=== PATIENT | female | born 2000 | race Caucasian/White ===

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

== ENCOUNTER 2022-06-06 18:52 | Emergency (ER) | payer BC ==
[2022-06-06 19:04] VITALS: BP 136/94; PULSE 86; RESP 20; TEMP 98.3
[2022-06-06] MEDS ORDERED: MORPHINE SULFATE 4 MG/ML SYRINGE IV STA (19:33)
[2022-06-06] MEDS ORDERED: ONDANSETRON 4 MG/2 ML VIAL IVP STA (19:33)
[2022-06-06] MEDS ORDERED: PANTOPRAZOLE 40 MG/10 ML VIAL IVP STA (19:33)
[2022-06-06] MEDS ORDERED: SODIUM CHLORIDE 0.9% 1,000 ML IV STA (19:33)
--- NOTE | 2022-06-06 19:53 | ED ---
General Adult HPI - General Chief complaint: Abdominal Pain Stated complaint: UTI Time Seen by Provider: 06/06/22 19:17 Source: patient, RN notes reviewed, old records reviewed Mode of arrival: ambulatory Limitations: no limitations - History of Present Illness Initial comments: Patient is a 21-year-old female who presents emergency Department complaining of abdominal pain. Patient states she is been dealing with the pain for the last 1 week to 10 days. States it is suprapubic and swelling on the left side of her abdomen. States is more or less constant. Does not come and go. Endorses intermittent nausea as well as nonbilious, emesis when the pain is bad. Denies any diarrhea or constipation. Denies any dysuria or hematuria. Is uncertain if she is . Denies chest pain or shortness of breath. No other acute complaints at this time. Denies fevers, chills, cough, sick contacts. Presents for further evaluation at this time.Denies any vaginal bleeding or discharge. Uncertain if she is . Does state her urine is somewhat darker. Does have prior dysuria/uti history. - Related Data Previous Rx's Medication Instructions Recorded Cephalexin [Keflex] 500 mg PO BID 1 Days #14 cap 07/09/20 Sulfamethox-Tmp 800-160Mg [Bactrim 1 tab PO Q12HR 7 Days #14 tab 06/06/22 DS 800-160 mg] Allergies Allergy/AdvReac Type Severity Reaction Status Date / Time latex Allergy Rash/Hives Verified 06/06/22 19:04 Review of Systems ROS Statement: Those systems with pertinent positive or pertinent negative responses have been documented in the HPI. Review of Systems: CONST: Denies fever EYES: Denies blurry vision ENT: Denies nasal congestion C/V: Denies Chest pain RESP: Denies shortness of breath GI: Endorses abdominal pain : Denies dysuria SKIN: Denies rash. MSK: Denies joint pain. NEURO: Denies headache ROS Other: All systems not noted in ROS Statement are negative. Past Medical History Past Medical History: No Reported History Additional Past Medical History / Comment(s): CP History of Any Multi-Drug Resistant Organisms: None Reported Past Surgical History: No Surgical Hx Reported Past Psychological History: Bipolar, Depression Smoking Status: Never smoker Past Alcohol Use History: None Reported Past Drug Use History: None Reported General Exam - General Exam Comments Initial Comments: General: Appears in no acute distress. HEAD: Normal with no signs of head trauma. EYES: PERRLA, EOMI, conjunctiva normal, no discharge. ENT: Hearing grossly intact, normal oropharynx. RESPIRATORY: Clear breath sounds bilaterally. No wheezes, rales, or rhonchi. C/V: Regular rate and rhythm. S1 and S2 auscultated, no edema, peripheral pulses 2+ and intact throughout ABD: Abdomen soft, nondistended. Mildly tender to palpation in the suprapubic region and left lower quadrant. No guarding. No peritoneal signs. No flank pain. No rebound tenderness. EXT: Normal range of motion, no obvious deformity SKIN: No rashes or lesions observed on exposed skin. NEURO: Alert and oriented 4. Limitations: no limitations Course Vital Signs 06/06/22 19:00 Temperature 98.3 F Pulse Rate 86 Respiratory 20 Rate Blood Pressure 136/94 O2 Sat by Pulse 95 Oximetry Medical Decision Making - Medical Decision Making Based on the patient's presentation and physical exam, patient presents over concern for abdominal pain, increased urinary frequency and slightly dark urine. I'm concerned for possible urogenital issue for the patient. We'll obtain a ultrasound to evaluate for possible torsion. We'll obtain abdominal laboratory studies and urine studies. She'll be symptomatically treated. She was in agreement this plan.Vital signs are within normal limits. Patient's ultrasound pelvis showed no acute findings. No signs of torsion. Laboratory studies are remarkable for a urinary tract infection, with large amount of leukocyte esterase, WBCs present. Patient is not . Covid is negative. Laboratory studies are otherwise within normal limits. On reevaluation, patient's pain has resolved. I discussed with her the results. She'll be treated for UTI at this time. She'll be given antibiotics for home. She was in agreement this plan. Strict return precautions were discussed. I will provide the patient with a prescription for Bactrim. I instructed the patient to follow up with their PCP in the next 1-3 days. I explained that the patient should return to the emergency department if they experience any worsening symptoms. Strict return precautions were discussed with the patient. The patient expressed understanding of these instructions. I answered all questions that the patient had. The patient was discharged home in good condition with their prescriptions and follow up information. - Lab Data Result diagrams: 06/06/22 20:08 06/06/22 20:08 Lab Results 06/06/22 06/06/22 06/06/22 Range/Units 20:08 20:08 20:08 WBC 8.6 (4.0-11.0) k/uL RBC 5.01 (3.80-5.40) m/uL Hgb 15.3 (11.4-16.0) gm/dL Hct 46.0 (34.0-46.0) % MCV 91.9 (80.0-100.0) fL MCH 30.6 (25.0-35.0) pg MCHC 33.3 (31.0-37.0) g/dL RDW 12.8 (11.5-15.5) % Plt Count 449 (150-450) k/uL MPV 7.2 Neutrophils % 79 % Lymphocytes % 15 % Monocytes % 4 % Eosinophils % 1 % Basophils % 0 % Neutrophils # 6.8 (1.3-7.7) k/uL Lymphocytes # 1.3 (1.0-4.8) k/uL Monocytes # 0.3 (0-1.0) k/uL Eosinophils # 0.1 (0-0.7) k/uL Basophils # 0.0 (0-0.2) k/uL Sodium 136 L (137-145) mmol/L Potassium 4.2 (3.5-5.1) mmol/L Chloride 98 (98-107) mmol/L Carbon Dioxide 23 (22-30) mmol/L Anion Gap 15 mmol/L BUN 9 (7-17) mg/dL Creatinine 0.91 (0.52-1.04) mg/dL Est GFR (CKD-EPI)AfAm >90 (>60 ml/min/1.73 sqM) Est GFR (CKD-EPI)NonAf >90 (>60 ml/min/1.73 sqM) Glucose 96 (74-99) mg/dL Calcium 9.9 (8.4-10.2) mg/dL Total Bilirubin 0.7 (0.2-1.3) mg/dL AST 27 (14-36) U/L ALT 21 (4-34) U/L Alkaline Phosphatase 84 (38-126) U/L Total Protein 7.6 (6.3-8.2) g/dL Albumin 4.8 (3.5-5.0) g/dL Amylase 67 (30-110) U/L Lipase 52 (23-300) U/L HCG, Qual Not Detected Urine Color Yellow Urine Appearance Clear (Clear) Urine pH 6.5 (5.0-8.0) Ur Specific [place] 1.016 (1.001-1.035) Urine Protein 1+ H (Negative) Urine Glucose (UA) Negative (Negative) Urine Ketones 1+ H (Negative) Urine Blood Small H (Negative) Urine Nitrite Negative (Negative) Urine Bilirubin Negative (Negative) Urine Urobilinogen <2.0 (<2.0) mg/dL Ur Leukocyte Esterase Large H (Negative) Urine RBC 33 H (0-5) /hpf Urine WBC 73 H (0-5) /hpf Ur Squamous Epith Cells 1 (0-4) /hpf Urine Bacteria Rare H (None) /hpf Urine Mucus Moderate H (None) /hpf Coronavirus (PCR) (Not Detectd) 06/06/22 Range/Units 20:18 WBC (4.0-11.0) k/uL RBC (3.80-5.40) m/uL Hgb (11.4-16.0) gm/dL Hct (34.0-46.0) % MCV (80.0-100.0) fL MCH (25.0-35.0) pg MCHC (31.0-37.0) g/dL RDW (11.5-15.5) % Plt Count (150-450) k/uL MPV Neutrophils % % Lymphocytes % % Monocytes % % Eosinophils % % Basophils % % Neutrophils # (1.3-7.7) k/uL Lymphocytes # (1.0-4.8) k/uL Monocytes # (0-1.0) k/uL Eosinophils # (0-0.7) k/uL Basophils # (0-0.2) k/uL Sodium (137-145) mmol/L Potassium (3.5-5.1) mmol/L Chloride (98-107) mmol/L Carbon Dioxide (22-30) mmol/L Anion Gap mmol/L BUN (7-17) mg/dL Creatinine (0.52-1.04) mg/dL Est GFR (CKD-EPI)AfAm (>60 ml/min/1.73 sqM) Est GFR (CKD-EPI)NonAf (>60 ml/min/1.73 sqM) Glucose (74-99) mg/dL Calcium (8.4-10.2) mg/dL Total Bilirubin (0.2-1.3) mg/dL AST (14-36) U/L ALT (4-34) U/L Alkaline Phosphatase (38-126) U/L Total Protein (6.3-8.2) g/dL Albumin (3.5-5.0) g/dL Amylase (30-110) U/L Lipase (23-300) U/L HCG, Qual Urine Color Urine Appearance (Clear) Urine pH (5.0-8.0) Ur Specific [place] (1.001-1.035) Urine Protein (Negative) Urine Glucose (UA) (Negative) Urine Ketones (Negative) Urine Blood (Negative) Urine Nitrite (Negative) Urine Bilirubin (Negative) Urine Urobilinogen (<2.0) mg/dL Ur Leukocyte Esterase (Negative) Urine RBC (0-5) /hpf Urine WBC (0-5) /hpf Ur Squamous Epith Cells (0-4) /hpf Urine Bacteria (None) /hpf Urine Mucus (None) /hpf Coronavirus (PCR) Not Detected (Not Detectd) Disposition Clinical Impression: UTI (urinary tract infection) Disposition: HOME SELF-CARE Condition: Good Instructions (If sedation given, give patient instructions): Urinary Tract Infection in Women (DC) Prescriptions: Sulfamethox-Tmp 800-160Mg [Bactrim DS 800-160 mg] 1 tab PO Q12HR 7 Days #14 tab Is patient prescribed a controlled substance at d/c from ED?: No Referrals: Ronald Correa MD [Primary Care Provider] - 1-2 days Time of Disposition: 21:20
[2022-06-06 20:19] LABS: Basophils % (A) 0 %; Eosinophils # (A) 0.1 k/uL (0-0.7); Eosinophils % (A) 1 %; HGB 15.3 gm/dL (11.4-16.0); Lymphocytes # (A) 1.3 k/uL (1.0-4.8); Lymphocytes % (A) 15 %; MCH 30.6 pg (25.0-35.0); MCHC 33.3 g/dL (31.0-37.0); MCV 91.9 fL (80.0-100.0); Mean Platelet Volume 7.2; Monocytes # (A) 0.3 k/uL (0-1.0); Monocytes % (A) 4 %; Neutrophils # (A) 6.8 k/uL (1.3-7.7); Neutrophils % (A) 79 %; Platelet Count 449 k/uL (150-450); RBC 5.01 m/uL (3.80-5.40); RDW 12.8 % (11.5-15.5); WBC 8.6 k/uL (4.0-11.0)
[2022-06-06 20:29] LABS: ALT 21 U/L (4-34); AST 27 U/L (14-36); African American GFR (CKD) >90 (>60 ml/min/1.73 sqM); Albumin 4.8 g/dL (3.5-5.0); Alkaline Phosphatase 84 U/L (38-126); Amylase 67 U/L (30-110); Anion Gap 15 mmol/L; Blood Urea Nitrogen 9 mg/dL (7-17); Calcium 9.9 mg/dL (8.4-10.2); Carbon Dioxide 23 mmol/L (22-30); Chloride 98 mmol/L (98-107); Glucose 96 mg/dL (74-99); Lipase 52 U/L (23-300); Non-African American GFR(CKD) >90 (>60 ml/min/1.73 sqM); Potassium 4.2 mmol/L (3.5-5.1); Sodium 136 mmol/L (137-145); Total Bilirubin 0.7 mg/dL (0.2-1.3); Total Protein 7.6 g/dL (6.3-8.2)
[2022-06-06 20:55] LABS: Appearance,Urine Clear (Clear); Bacteria,Urine Rare /hpf; Bilirubin,Urine Negative (Negative); Blood,Urine Small (Negative); Color,Urine Yellow; Glucose,Urine (UA) Negative (Negative); Ketones,Urine 1+ (Negative); Leukocyte Esterase,Urine Large (Negative); Mucus,Urine Moderate /hpf; Nitrite,Urine Negative (Negative); PH, Urine 6.5 (5.0-8.0); Protein,Urine 1+ (Negative); RBC,Urine 33 /hpf (0-5); Specific Gravity,Urine 1.016 (1.001-1.035); Squamous Epithelial Cell,Urine 1 /hpf (0-4); Urobilinogen,Urine <2.0 mg/dL (<2.0); WBC,Urine 73 /hpf (0-5)
[2022-06-06 20:57] LABS: HCG,Qualitative Serum Not Detected
[2022-06-06] MEDS ORDERED: cefTRIAXone IN SWFI 1,000 MG/10 ML SYRINGE IVP STA (21:34)
--- NOTE | 2022-06-07 13:11 | US ---
EXAMINATION TYPE: US pelvic complete DATE OF EXAM: 06/06/2022 COMPARISON: NONE CLINICAL HISTORY: abd pain. irregular cycles TECHNIQUE: Transvaginal (TV) and Transabdominal (TA) . Transabdominal sonographic images of the pel vis were acquired. Transvaginal sonographic images were medically necessary to better assess the fol lowing anatomy: pelvic organs Date of LMP: 3 months ago EXAM MEASUREMENTS: Uterus: 7.1 x 3.4 x 4.2 cm Endometrial Stripe: 0.6 cm Right Ovary: 3.0 x 2.0 x 1.9 cm Left Ovary: 2.5 x 1.6 x 1.5 cm 1. Uterus: Anteverted wnl 2. Endometrium: wnl 3. Right Ovary: wnl 4. Left Ovary: wnl 5. Bilateral Adnexa: wnl 6. Posterior cul-de-sac: no free fluid seen Anteverted uterus. Endometrial stripe somewhat thin for last normal menstrual period. No free fluid i n pelvis. Ovaries symmetric and normal in size. Occasional scattered follicle. No concerning adnexal masses. IMPRESSION: Thinning of endometrium for last known normal menstrual period. No adnexal masses noted.
== END 2022-06-06 21:53 | disposition home or self-care (01) ==
LOC: EC 18:52
DX: N39.0 Urinary tract infection, site not specified (principal); F31.9 Bipolar disorder, unspecified; Z91.040 Latex allergy status; Z79.899 Other long term (current) drug therapy; Z20.822 Contact with and (suspected) exposure to COVID-19
CPT/HCPCS: 36415; 80053; 82150; 83690; 85025; 81001; 84703; 87086; 87635; 76856; 76830; 99284; 96374; 96375 ×3; 96361; J2270; J2405; J0696; C9113

== ENCOUNTER 2022-07-17 17:47 | Emergency (ER) | payer BC ==
[2022-07-17 18:09] VITALS: BP 138/89; PULSE 97; RESP 18; TEMP 98.7
--- NOTE | 2022-07-17 19:21 | XR ---
EXAMINATION TYPE: XR chest 2V DATE OF EXAM: 07/17/2022 7:15 PM COMPARISON: Chest radiographs from 07/09/2020 TECHNIQUE: XR chest 2V Frontal and lateral views of the chest. CLINICAL INDICATION:Female, 21 years old with history of Productive cough; FINDINGS: Lungs/Pleura: There is no evidence of pleural effusion, focal consolidation, or pneumothorax. Pulmonary vascularity: Unremarkable. Heart/mediastinum: Cardiomediastinal silhouette is unremarkable. Musculoskeletal: No acute osseous pathology. IMPRESSION: No acute cardiopulmonary disease/process.
--- NOTE | 2022-07-17 19:35 | ED ---
URI HPI - General Chief Complaint: Upper Respiratory Infection Stated Complaint: cough & congestion Time Seen by Provider: 07/17/22 18:53 Source: patient Mode of arrival: ambulatory Limitations: no limitations - History of Present Illness Initial Comments: Patient is a 21-year-old female presenting with chief complaint of cough. Patient has had a productive cough for the last few days. She also admits to nasal congestion and sinus pressure. She has been taking acetaminophen at home. She admits to "scratchy throat". Denies any difficulty swallowing. No chest pain or difficulty breathing. No nausea, vomiting, abdominal pain. No neck pain or stiffness. No headache or vision or hearing changes. - Related Data Previous Rx's Medication Instructions Recorded Cephalexin [Keflex] 500 mg PO BID 1 Days #14 cap 07/09/20 Sulfamethox-Tmp 800-160Mg [Bactrim 1 tab PO Q12HR 7 Days #14 tab 06/06/22 DS 800-160 mg] Allergies Allergy/AdvReac Type Severity Reaction Status Date / Time latex Allergy Rash/Hives Verified 07/17/22 18:09 Review of Systems ROS Statement: Those systems with pertinent positive or pertinent negative responses have been documented in the HPI. ROS Other: All systems not noted in ROS Statement are negative. Past Medical History Past Medical History: No Reported History Additional Past Medical History / Comment(s): CP History of Any Multi-Drug Resistant Organisms: None Reported Past Surgical History: No Surgical Hx Reported Past Psychological History: Bipolar, Depression Smoking Status: Vaper Past Alcohol Use History: None Reported Past Drug Use History: Marijuana General Exam Limitations: no limitations General appearance: alert, in no apparent distress Head exam: Present: atraumatic, normocephalic, normal inspection Eye exam: Present: normal appearance, PERRL, EOMI. Absent: scleral icterus, conjunctival injection, periorbital swelling ENT exam: Present: normal exam, mucous membranes moist Neck exam: Present: normal inspection, full ROM Respiratory exam: Present: normal lung sounds bilaterally. Absent: respiratory distress, wheezes, rales, rhonchi, stridor Cardiovascular Exam: Present: regular rate, normal rhythm, normal heart sounds. Absent: systolic murmur, diastolic murmur, rubs, gallop, clicks Neurological exam: Present: alert, oriented X3, CN II-XII intact Psychiatric exam: Present: normal affect, normal mood Skin exam: Present: warm, dry, intact, normal color. Absent: rash Course Vital Signs 07/17/22 18:06 Temperature 98.7 F Pulse Rate 97 Respiratory 18 Rate Blood Pressure 138/89 O2 Sat by Pulse 99 Oximetry Medical Decision Making - Medical Decision Making Patient is a 21-year-old female presenting with chief complaint of productive cough and congestion. Symptoms have been ongoing for the last few days. Ph ysical examination is unremarkable. Patient is negative for coronavirus influenza. Chest x-ray shows no acute process. Symptoms are likely viral in nature educated on supportive treatment.Follow-up with PCP. Report back to ER with any new or worsening symptoms. Discussed return parameters and answered all questions. Patient conveyed verbal understanding and agreed to the plan. I discussed this case in detail with my attending Dr. Sanders. - Lab Data Lab Results 07/17/22 07/17/22 Range/Units 18:10 18:16 Coronavirus (PCR) Not Detected (Not Detectd) Influenza Type A RNA Not Detected (Not Detectd) Influenza Type B (PCR) Not Detected (Not Detectd) Disposition Clinical Impression: Upper respiratory tract infection Disposition: HOME SELF-CARE Condition: Good Instructions (If sedation given, give patient instructions): Upper Respiratory Infection (ED) Additional Instructions: Follow-up with PCP. Report back to ER with any new or worsening symptoms. Take Motrin or Tylenol as needed for pain control. Take Mucinex and Sudafed as needed for congestion. Is patient prescribed a controlled substance at d/c from ED?: No Referrals: Ronald Correa MD [Primary Care Provider] - 1-2 days Time of Disposition: 19:35
== END 2022-07-17 20:04 | disposition home or self-care (01) ==
LOC: EC 17:47
DX: J06.9 Acute upper respiratory infection, unspecified (principal); F17.290 Nicotine dependence, other tobacco product, uncomplicated; Z20.822 Contact with and (suspected) exposure to COVID-19; Z91.040 Latex allergy status
CPT/HCPCS: 71046; 87502; 87635; 99283

== ENCOUNTER 2022-09-09 09:50 | Emergency (ER) | payer BC ==
[2022-09-09 10:21] LABS: Appearance,Urine Cloudy (Clear); Bilirubin,Urine Negative (Negative); Blood,Urine Small (Negative); Color,Urine Yellow; Glucose,Urine (UA) Negative (Negative); Ketones,Urine Negative (Negative); Leukocyte Esterase,Urine Negative (Negative); Mucus,Urine Many /hpf; Nitrite,Urine Negative (Negative); PH, Urine 5.5 (5.0-8.0); Protein,Urine 1+ (Negative); RBC,Urine 2 /hpf (0-5); Specific Gravity,Urine 1.034 (1.001-1.035); Squamous Epithelial Cell,Urine 16 /hpf (0-4); Urobilinogen,Urine <2.0 mg/dL (<2.0); WBC,Urine 4 /hpf (0-5)
--- NOTE | 2022-09-09 11:21 | XR ---
EXAMINATION TYPE: XR KUB DATE OF EXAM: 09/09/2022 COMPARISON: NONE HISTORY: Pain TECHNIQUE: Single supine KUB image of the abdomen is obtained FINDINGS: Small bowel demonstrates no evidence for dilatation or air fluid levels. Gas and fecal material is seen in non-distended colon. No convincing evidence for pneumoperitoneum. No unusual calcifications. The lung bases are clear. IUD is in place. The osseous structures are intact. IMPRESSION: 1. Overall nonobstructive bowel gas pattern.
[2022-09-09] MEDS ORDERED: SODIUM CHLORIDE 0.9% 1,000 ML IV STA (11:24)
[2022-09-09] MEDS ORDERED: ONDANSETRON 4 MG/2 ML VIAL IVP STA (11:24)
[2022-09-09] MEDS ORDERED: KETOROLAC 15 MG/ML 1 ML VIAL IVP STA (11:24)
--- NOTE | 2022-09-09 11:47 | ED ---
Pediatric GI HPI - General Chief Complaint: Abdominal Pain Stated Complaint: Constipation,Bloating Time Seen by Provider: 09/09/22 11:09 Source: patient, RN notes reviewed Mode of arrival: ambulatory Limitations: no limitations - History of Present Illness Initial Comments: This is a 21-year-old female with a past medical history of cerebral palsy. She presents to the emergency department with abdominal pain, nausea/vomiting, and constipation. States that the symptoms have been present for 5 days. She has tried over the counter stool softeners and laxatives. Her mother is a nurse and is concerned that she may have a blockage, which she states that she is prone to with the cerebral palsy. She has no history of bowel obstructions. States that she is taking Tylenol for her pain, but it has not been effective. The pain is primarily in the center of her abdomen. Denies any fevers or chills. She was at urgent care yesterday, and said that nothing was done for her. Denies any fevers, chills, sore throat, cough, dyspnea, chest pain, palpitations, diarrhea, back pain, or headaches. MD Complaint: nausea/vomiting, abdominal Onset/Timin -: days(s) Fever: No Pain Location: periumbilical Associated Symptoms: constipation - Related Data Previous Rx's Medication Instructions Recorded Cephalexin [Keflex] 500 mg PO BID 1 Days #14 cap 07/09/20 Sulfamethox-Tmp 800-160Mg [Bactrim 1 tab PO Q12HR 7 Days #14 tab 06/06/22 DS 800-160 mg] Ketorolac [Toradol] 10 mg PO Q8HR #15 tab 09/09/22 Ondansetron Odt [Zofran Odt] 4 mg PO Q8HR PRN #15 tab 09/09/22 Allergies Allergy/AdvReac Type Severity Reaction Status Date / Time latex Allergy Rash/Hives Verified 09/09/22 10:02 Review of Systems ROS Statement: Those systems with pertinent positive or pertinent negative responses have been documented in the HPI. ROS Other: All systems not noted in ROS Statement are negative. Past Medical History Past Medical History: No Reported History Additional Past Medical History / Comment(s): CP History of Any Multi-Drug Resistant Organisms: None Reported Past Surgical History: No Surgical Hx Reported Past Psychological History: Bipolar, Depression Smoking Status: Vaper Past Alcohol Use History: None Reported Past Drug Use History: Marijuana General Exam Limitations: no limitations General appearance: alert, in no apparent distress Head exam: Present: atraumatic, normocephalic, normal inspection Respiratory exam: Present: normal lung sounds bilaterally. Absent: respiratory distress, wheezes, rales, rhonchi, stridor Cardiovascular Exam: Present: regular rate, normal rhythm, normal heart sounds. Absent: systolic murmur, diastolic murmur, rubs, gallop, clicks GI/Abdominal exam: Present: soft, tenderness (periumbilical), normal bowel sounds. Absent: distended Neurological exam: Present: alert, oriented X3, CN II-XII intact Psychiatric exam: Present: normal affect, normal mood Skin exam: Present: warm, dry, intact, normal color. Absent: rash Course Vital Signs 09/09/22 09/09/22 09/09/22 09:59 12:55 14:35 Temperature 98.1 F 98.5 F 98.2 F Pulse Rate 90 71 77 Respiratory 18 17 16 Rate Blood Pressure 119/82 122/72 123/71 O2 Sat by Pulse 98 99 97 Oximetry Medical Decision Making - Medical Decision Making This is a 21-year-old female who presents to the emergency department with abdominal pain. Urinalysis negative for signs of infection. My interpretation of the KUB x-ray reveals no signs of free air, but she does have evidence of constipation without colon distension. Lab work was nonactionable. My interpretation of the computed tomography scan reveals fluid in the small bowels with mild distention. The radiologist suggests that this may be related to enteritis. The cause of this is nonspecific. Findings reviewed with the patient. Advised she push fluids and try to increase her activity level to some extent to promote movement of the bowels. I also suggested she continue with [id number] constipation medication and try adding a probiotic to her diet. She did note significant relief with IV fluids, Toradol, and Zofran. Prescription for Zofran and Toradol provided with dosing instructions reviewed. Instructed her to avoid ibuprofen and other NSAIDs if she chooses to take the Toradol. Also instructed her to slowly advance her diet as tolerated. Return precautions reviewed in depth, the patient is instructed to return to the emergency department with any new, worsening, or concerning symptoms. Patient verbalized understanding. This case was discussed in detail with the attending ED physician. Presentation, findings, and treatment plan discussed in detail as well. - Lab Data Result diagrams: 09/09/22 12:45 09/09/22 12:45 Lab Results 09/09/22 09/09/22 09/09/22 Range/Units 10:08 10:08 12:45 WBC 6.1 (4.0-11.0) k/uL RBC 4.72 (3.80-5.40) m/uL Hgb 13.7 (11.4-16.0) gm/dL Hct 41.5 (34.0-46.0) % MCV 87.9 (80.0-100.0) fL MCH 28.9 (25.0-35.0) pg MCHC 32.9 (31.0-37.0) g/dL RDW 12.3 (11.5-15.5) % Plt Count 432 (150-450) k/uL MPV 7.6 Neutrophils % 68 % Lymphocytes % 23 % Monocytes % 5 % Eosinophils % 2 % Basophils % 1 % Neutrophils # 4.1 (1.3-7.7) k/uL Lymphocytes # 1.4 (1.0-4.8) k/uL Monocytes # 0.3 (0-1.0) k/uL Eosinophils # 0.1 (0-0.7) k/uL Basophils # 0.0 (0-0.2) k/uL Sodium (137-145) mmol/L Potassium (3.5-5.1) mmol/L Chloride (98-107) mmol/L Carbon Dioxide (22-30) mmol/L Anion Gap mmol/L BUN (7-17) mg/dL Creatinine (0.52-1.04) mg/dL Est GFR (CKD-EPI)AfAm (>60 ml/min/1.73 sqM) Est GFR (CKD-EPI)NonAf (>60 ml/min/1.73 sqM) Glucose (74-99) mg/dL Plasma Lactic Acid Ze (0.7-2.0) mmol/L Calcium (8.4-10.2) mg/dL Total Bilirubin (0.2-1.3) mg/dL AST (14-36) U/L ALT (4-34) U/L Alkaline Phosphatase (38-126) U/L Total Protein (6.3-8.2) g/dL Albumin (3.5-5.0) g/dL Amylase (30-110) U/L Lipase (23-300) U/L Urine Color Yellow Urine Appearance Cloudy H (Clear) Urine pH 5.5 (5.0-8.0) Ur Specific [place] 1.034 (1.001-1.035) Urine Protein 1+ H (Negative) Urine Glucose (UA) Negative (Negative) Urine Ketones Negative (Negative) Urine Blood Small H (Negative) Urine Nitrite Negative (Negative) Urine Bilirubin Negative (Negative) Urine Urobilinogen <2.0 (<2.0) mg/dL Ur Leukocyte Esterase Negative (Negative) Urine RBC 2 (0-5) /hpf Urine WBC 4 (0-5) /hpf Ur Squamous Epith Cells 16 H (0-4) /hpf Urine Mucus Many H (None) /hpf Urine HCG, Qual Not Detected (Not Detectd) 09/09/22 09/09/22 Range/Units 12:45 12:45 WBC (4.0-11.0) k/uL RBC (3.80-5.40) m/uL Hgb (11.4-16.0) gm/dL Hct (34.0-46.0) % MCV (80.0-100.0) fL MCH (25.0-35.0) pg MCHC (31.0-37.0) g/dL RDW (11.5-15.5) % Plt Count (150-450) k/uL MPV Neutrophils % % Lymphocytes % % Monocytes % % Eosinophils % % Basophils % % Neutrophils # (1.3-7.7) k/uL Lymphocytes # (1.0-4.8) k/uL Monocytes # (0-1.0) k/uL Eosinophils # (0-0.7) k/uL Basophils # (0-0.2) k/uL Sodium 142 (137-145) mmol/L Potassium 3.6 (3.5-5.1) mmol/L Chloride 112 H (98-107) mmol/L Carbon Dioxide 21 L (22-30) mmol/L Anion Gap 9 mmol/L BUN 7 (7-17) mg/dL Creatinine 0.75 (0.52-1.04) mg/dL Est GFR (CKD-EPI)AfAm >90 (>60 ml/min/1.73 sqM) Est GFR (CKD-EPI)NonAf >90 (>60 ml/min/1.73 sqM) Glucose 90 (74-99) mg/dL Plasma Lactic Acid Ze 0.8 (0.7-2.0) mmol/L Calcium 8.4 (8.4-10.2) mg/dL Total Bilirubin 0.5 (0.2-1.3) mg/dL AST 22 (14-36) U/L ALT 18 (4-34) U/L Alkaline Phosphatase 74 (38-126) U/L Total Protein 7.0 (6.3-8.2) g/dL Albumin 4.3 (3.5-5.0) g/dL Amylase 55 (30-110) U/L Lipase 65 (23-300) U/L Urine Color Urine Appearance (Clear) Urine pH (5.0-8.0) Ur Specific [place] (1.001-1.035) Urine Protein (Negative) Urine Glucose (UA) (Negative) Urine Ketones (Negative) Urine Blood (Negative) Urine Nitrite (Negative) Urine Bilirubin (Negative) Urine Urobilinogen (<2.0) mg/dL Ur Leukocyte Esterase (Negative) Urine RBC (0-5) /hpf Urine WBC (0-5) /hpf Ur Squamous Epith Cells (0-4) /hpf Urine Mucus (None) /hpf Urine HCG, Qual (Not Detectd) - Radiology Data Radiology results: report reviewed, image reviewed Disposition Clinical Impression: Constipation, Abdominal pain Disposition: HOME SELF-CARE Instructions (If sedation given, give patient instructions): Constipation (ED), High Fiber Diet (ED), Abdominal Pain (ED), Enteritis (ED) Additional Instructions: Return to the emergency department with any new, worsening, or concerning symptoms. Continue to use [id number] stool softeners. Increase your fluid intake. You can also try taking probiotics. If you choose to take the Toradol for pain, do not mix this with ibuprofen or other anti-inflammatories. The Zofran can be taken up to every 8 hours as needed for nausea and vomiting. Slowly advance your diet as tolerated. Follow up with your primary care prov ider in 1-2 days. Prescriptions: Ketorolac [Toradol] 10 mg PO Q8HR #15 tab Ondansetron Odt [Zofran Odt] 4 mg PO Q8HR PRN #15 tab PRN Reason: Nausea And Vomiting Is patient prescribed a controlled substance at d/c from ED?: No Referrals: Ronald Correa MD [Primary Care Provider] - 1-2 days
[2022-09-09 12:58] LABS: Basophils % (A) 1 %; Eosinophils # (A) 0.1 k/uL (0-0.7); Eosinophils % (A) 2 %; HCT 41.5 % (34.0-46.0); HGB 13.7 gm/dL (11.4-16.0); Lymphocytes # (A) 1.4 k/uL (1.0-4.8); Lymphocytes % (A) 23 %; MCH 28.9 pg (25.0-35.0); MCHC 32.9 g/dL (31.0-37.0); MCV 87.9 fL (80.0-100.0); Mean Platelet Volume 7.6; Monocytes # (A) 0.3 k/uL (0-1.0); Monocytes % (A) 5 %; Neutrophils # (A) 4.1 k/uL (1.3-7.7); Neutrophils % (A) 68 %; Platelet Count 432 k/uL (150-450); RBC 4.72 m/uL (3.80-5.40); RDW 12.3 % (11.5-15.5); WBC 6.1 k/uL (4.0-11.0)
[2022-09-09 13:09] LABS: ALT 18 U/L (4-34); AST 22 U/L (14-36); African American GFR (CKD) >90 (>60 ml/min/1.73 sqM); Albumin 4.3 g/dL (3.5-5.0); Alkaline Phosphatase 74 U/L (38-126); Amylase 55 U/L (30-110); Anion Gap 9 mmol/L; Blood Urea Nitrogen 7 mg/dL (7-17); Calcium 8.4 mg/dL (8.4-10.2); Carbon Dioxide 21 mmol/L (22-30); Chloride 112 mmol/L (98-107); Glucose 90 mg/dL (74-99); Lipase 65 U/L (23-300); Non-African American GFR(CKD) >90 (>60 ml/min/1.73 sqM); Potassium 3.6 mmol/L (3.5-5.1); Sodium 142 mmol/L (137-145); Total Bilirubin 0.5 mg/dL (0.2-1.3)
--- NOTE | 2022-09-09 13:29 | CT ---
EXAMINATION TYPE: CT abdomen pelvis w con DATE OF EXAM: 09/09/2022 COMPARISON: None HISTORY: abdominal pain, bloating, constipation CT DLP: 1225.8 mGycm CONTRAST: CT scan of the abdomen and pelvis is performed without Oral Contrast and with IV Contrast, patient in jected with 90 mL of Isovue 300. FINDINGS: LUNG BASES-: No visible nodule. No infiltrate. LIVER/GB: No calcified gallstones. No space occupying hepatic lesion. Biliary tree is of normal ca liber. PANCREAS: No inflammation. No distinct mass. SPLEEN: No splenic enlargement. No lesion seen. ADRENALS: No nodule. No thickening. KIDNEYS/BLADDER: No hydronephrosis. No nephrolithiasis. No distinct renal mass. Urinary bladder g rossly unremarkable. BOWEL: Normal appendix. Fluid distended small bowel wall thickening may reflect nonspecific enteritis . Large bowel is of normal caliber. Fluid contents right hemicolon. GENITAL ORGANS: No gross abnormality. IUD is in place. LYMPH NODES: No greater than 1cm abdominal or pelvic lymph nodes are appreciated. AORTA: No significant abnormality. OSSEOUS STRUCTURES: No significant abnormality is seen. OTHER: No significant additional abnormality is seen. IMPRESSION: 1. Correlate for nonspecific small bowel enteritis.
[2022-09-09 14:36] VITALS: BP 123/71; PULSE 77; RESP 16; TEMP 98.2
== END 2022-09-09 14:36 | disposition home or self-care (01) ==
LOC: EC 09:50
DX: K59.00 Constipation, unspecified (principal); K52.89 Other specified noninfective gastroenteritis and colitis; F31.9 Bipolar disorder, unspecified; F17.290 Nicotine dependence, other tobacco product, uncomplicated; F12.90 Cannabis use, unspecified, uncomplicated; Z91.040 Latex allergy status
CPT/HCPCS: 99284; 96374; 96375; 96361; 36415; 80053; 82150; 83605; 83690; 85025; 81001; 81025; 74018; 74177; J2405; J1885; Q9967

== ENCOUNTER 2023-11-06 01:47 | Inpatient (IN) | payer BC ==
--- NOTE | 2023-11-06 04:25 | XR ---
EXAM: XR Chest, 2 Views CLINICAL HISTORY: ITS.REASON XR Reason: r/o PNA TECHNIQUE: Frontal and lateral views of the chest. COMPARISON: No relevant prior studies available. FINDINGS: Lungs: Heterogeneous right lower perihilar opacity. Pleural space: No effusion. Heart: No cardiomegaly. Bones/joints: No acute findings. IMPRESSION: Heterogeneous right lower perihilar opacity.
[2023-11-06] MEDS: IPRATROPIUM-ALBUTEROL 3 ML NEB INHALATION STA (05:01)
--- NOTE | 2023-11-06 06:13 | ED ---
General Adult HPI - General Chief complaint: Shortness of Breath Stated complaint: chest congestion, SOB Time Seen by Provider: 11/06/23 02:21 Source: patient Mode of arrival: EMS Limitations: no limitations - History of Present Illness Initial comments: 23-year-old female with a past medical history significant for asthma presenting to the ED with a chief complaint of shortness of breath. Patient states for the past few days has had cough, congestion, shortness of breath. Was seen at urgent care 2 days ago and was told that she was having a flareup of her asthma. She was provided a breathing treatment and started on steroids which she reports she has been taking twice daily. She is unsure what the steroids are at this time. Despite continuing breathing treatments and taking the steroids at home patient reports that she is still feeling short of breath prompting presentation to the ED for further evaluation. - Related Data Previous Rx's Medication Instructions Recorded Cephalexin [Keflex] 500 mg PO BID 1 Days #14 cap 07/09/20 Sulfamethox-Tmp 800-160Mg [Bactrim 1 tab PO Q12HR 7 Days #14 tab 06/06/22 DS 800-160 mg] Ketorolac [Toradol] 10 mg PO Q8HR #15 tab 09/09/22 Ondansetron Odt [Zofran Odt] 4 mg PO Q8HR PRN #15 tab 09/09/22 Allergies Allergy/AdvReac Type Severity Reaction Status Date / Time latex Allergy Rash/Hives Verified 09/09/22 10:02 Review of Systems ROS Statement: Those systems with pertinent positive or pertinent negative responses have been documented in the HPI. ROS Other: All systems not noted in ROS Statement are negative. Past Medical History Past Medical History: No Reported History Additional Past Medical History / Comment(s): CP History of Any Multi-Drug Resistant Organisms: None Reported Past Surgical History: No Surgical Hx Reported Past Psychological History: Bipolar, Depression Smoking Status: Vaper Past Alcohol Use History: None Reported Past Drug Use History: Marijuana General Exam Limitations: no limitations General appearance: alert Neck exam: Present: normal inspection Respiratory exam: Present: wheezes (Wheezes in bilateral lung garza.) Cardiovascular Exam: Present: regular rate GI/Abdominal exam: Present: soft Extremities exam: Present: normal inspection Neurological exam: Present: alert, oriented X3 Skin exam: Present: warm, dry Course Vital Signs 11/06/23 11/06/23 11/06/23 01:49 05:01 05:09 Temperature 98.8 F Pulse Rate 91 78 84 Respiratory 20 Rate Blood Pressure 127/78 O2 Sat by Pulse 94 L Oximetry Medical Decision Making - Medical Decision Making Was pt. sent in by a medical professional or institution (, RANJIT, AIR CREW SUPERVISOR, urgent c are, hospital, or retirement...) When possible be specific @ -No Did you speak to anyone other than the patient for history (EMS, parent, family, police, friend...)? What history was obtained from this source @ -No Did you review nursing and triage notes (agree or disagree)? Why? @ -I reviewed and agree with nursing and triage notes Were old charts reviewed (outside hosp., previous admission, EMS record, old EKG, old radiological studies, urgent care reports/EKG's, retirement records)? Report findings @ -No old charts were reviewed Differential Diagnosis (chest pain, altered mental status, abdominal pain women, abdominal pain men, vaginal bleeding, weakness, fever, dyspnea, syncope, headache, dizziness, GI bleed, back pain, seizure, CVA, palpatations, mental health, musculoskeletal)? @ -Differential Dyspnea: Coronary syndrome, arrhythmia, tamponade, asthma, COPD, pulmonary embolism, pneumonia, pneumothorax, pulmonary effusion, anaphylaxis, diabetic ketoacidosis, flailed chest, pulmonary contusion, diaphragmatic rupture, anemia, neuromuscular, this is not meant to be an all-inclusive list. EKG interpreted by me (3pts min.). @ -None X-rays interpreted by me (1pt min.). @ -Chest x-ray interpreted by me showing possible developing pneumonia of right lower lung. CT interpreted by me (1pt min.). @ -None done U/S interpreted by me (1pt. min.). @ -None done What testing was considered but not performed or refused? (CT, X-rays, U/S, labs)? Why? @ -None What meds were considered but not given or refused? Why? @ -None Did you discuss the management of the patient with other professionals (professionals i.e. RANJIT Ansari, AIR CREW SUPERVISOR, lab, RT, psych nurse, social work professor, nutritionist, teacher, senior major gifts officer, pillowcase cutter)? Give summary @ -Case discussed with Dr. De La Cruz, who accepts admission. Was smoking cessation discussed for >3mins.? @ -No Was critical care preformed (if so, how long)? @ -No Were there social determinants of health that impacted care today? How? (Homelessness, low income, unemployed, alcoholism, drug addiction, transportation, low edu. Level, literacy, decrease access to med. care, [place] [facility], rehab)? @ -No Was there de-escalation of care discussed even if they declined (Discuss DNR or withdrawal of care, Hospice)? DNR status @ -No What co-morbidities impacted this encounter? (DM, HTN, Smoking, COPD, CAD, Cancer, CVA, ARF, Chemo, Hep., AIDS, mental health diagnosis, sleep apnea, morbid obesity)? @ -Asthma Was patient admitted / discharged? Hospital course, mention meds given and route, prescriptions, significant lab abnormalities, going to OR and other pertinent info. @ -Admission 23-year-old female presenting to the ED with complaints of dyspnea. Chest x-ray here did show possible developing pneumonia of her right lung. Despite already being on steroids and breathing treatments here in the ED patient continues to have significant wheezing and remains hypoxic at high 80s to low 90s on room air. Therefore patient admitted with consultation to pulmonology. Patient started on antibiotics and placed on a nasal cannula here in the ED. Discussed plan of care with patient who is in agreement. Undiagnosed new problem with uncertain prognosis? @ -No Drug Therapy requiring intensive monitoring for toxicity (Heparin, Nitro, Insulin, Cardizem)? @ -No Were any procedures done? @ -No Diagnosis/symptom? @ -Asthma exacerbation, pneumonia Acute, or Chronic, or Acute on Chronic? @ -Acute Uncomplicated (without systemic symptoms) or Complicated (systemic symptoms)? @ -Complicated Side effects of treatment? @ -No Exacerbation, Progression, or Severe Exacerbation? @ -No Poses a threat to life or bodily function? How? (Chest pain, [place], [place], pneumonia, PE, COPD, DKA, ARF, appy, cholecystitis, CVA, Diverticulitis, Homicidal, Suic idal, threat to staff... and all critical care pts) @ -Possibly - Lab Data Lab Results 11/06/23 Range/Units 02:32 Influenza Type A (PCR) Not Detected (Not Detectd) Influenza Type B (PCR) Not Detected (Not Detectd) RSV (PCR) Detected A (Not Detectd) SARS-CoV-2 (PCR) Not Detected (Not Detectd) Disposition Clinical Impression: Asthma exacerbation Disposition: ADMITTED IP TO THIS HOSP Condition: Good Referrals: Anamaria Michael MD [Primary Care Provider] - 1-2 days
[2023-11-06] MEDS ORDERED: ACETAMINOPHEN TAB 325 MG TAB PO PRN (06:20)
[2023-11-06] MEDS ORDERED: NALOXONE 0.4 MG/ML 1 ML VIAL IV PRN (06:20)
[2023-11-06] MEDS ORDERED: IPRATROPIUM-ALBUTEROL 3 ML NEB INHALATION PRN (06:20)
[2023-11-06] MEDS ORDERED: AZITHROMYCIN 500 MG in SODIUM CHLORIDE 0.9% 250 ML IVPB STA (06:25)
[2023-11-06] MEDS ORDERED: PNEUMONIA PROTOCOL UTILIZED 1 EACH MISC PO PRN (06:25)
[2023-11-06] MEDS: SODIUM CHLORIDE 0.9% 1,000 ML IV SCH (07:30)
--- NOTE | 2023-11-06 07:40 | P.HPIM ---
History of Present Illness H&P Date: 11/06/23 Patient is a 23-year-old female with a past medical history for asthma, history of nicotine dependency, and marijuana use who presented to the emergency department with complaints of shortness of breath. Patient had been seen at urgent care 2 days ago and was started on steroids and breathing treatments. She continued to have worsening shortness of breath and she therefore presented to the emergency department. Initial vitals in the ER were within normal limits. Influenza A/B/RSV/COVID testing demonstrated an RSV infection. In the ER she received 1 breathing treatment, Zithromax, and Rocephin. She was placed in observation. Patient seen and examined at bedside. She reports for the last 4 days she has had worsening shortness of breath, wheezing, and a nonproductive cough. She is unsure about any fevers at home. She has had some sore throat and nasal stuffiness. She denies any runny nose. She has been feeling slightly fatigued. She does report it is slightly difficult to eat due to her severe sore throat but her appetite has been intact. She has been using her steroids and nebulizer at home. She typically is not on any maintenance inhalers and does not follow w ith a line technician but does see a primary care physician. Vital signs reviewed General: nontoxic, no distress, appears at stated age Derm: warm, dry Eyes: EOMI, no lid lag, anicteric sclera, pupils equal round reactive to light ENT: Nose and ears atraumatic Cardiovascular: S1S2 reg, no murmur, no edema Lungs: + wheeze bilateral, no accessory muscle use Abdominal: soft, nontender to palpation, no guarding Ext: no gross muscle atrophy, no contractures Neuro: CN II-XII grossly intact, No focal neuro deficits Psych: Alert, oriented, appropriate affect Assessment/Plan: Acute exacerbation of Asthma RSV pneumonia - place patient in observation - solumedrol 125 mg IV X 1 now and start 60 mg IV every 6 hours -Albuterol every 4 hours scheduled and every 2 hours as needed -Check labs as not have been performed yet including CBC, CMP, mag, Phos -Will hold off on antibiotics at this time as patient has a pneumonia but likely is related to her positive RSV testing and antibiotics will be of no benefit. -Wean O2 as able -Await pulmonary consultation -We had a long discussion that RSV takes several weeks to improve and that she may have continued shortness of breath and wheezing upon discharge. Hypothyroidism -Synthroid 50 mcg daily Nicotine dependency -Nicotine patch 14 mcg once daily as needed, nicotine gum 2 mg every 2 hours as needed Imaging: Chest x-rays reviewed by myself shows right perihilar infiltrate Data Review: Labs ordered and reviewed include CBC and CMP which are remarkable for glucose of 149. Phosphorus elevated at 4.8 and magnesium normal at 1.9. The patient is placed in observation for RSV pneumonia DVT prophylaxis: early ambulation Anticipated discharge date: in AM Anticipated discharge place: home This dictation was prepared using [employer] voice recognition software. Though every attempt is made to correct errors during dictation some may still exist. Past Medical History Past Medical History: Asthma Additional Past Medical History / Comment(s): CP, Hypothyroidism History of Any Multi-Drug Resistant Organisms: None Reported Past Surgical History: No Surgical Hx Reported Past Psychological History: Bipolar, Depression Smoking Status: Vaper Past Alcohol Use History: None Reported Past Drug Use History: Marijuana Medications and Allergies Home Medications Medication Instructions Recorded Confirmed Type Albuterol Inhaler [Ventolin Hfa 2 puff INHALATION RT-Q6H PRN 11/06/23 11/06/23 History Inhaler] Albuterol Nebulized [Ventolin 2.5 mg INHALATION RT-Q6H PRN 11/06/23 11/06/23 History Nebulized] Levothyroxine Sodium [Synthroid] 50 mcg PO DAILY 11/06/23 11/06/23 History Venlafaxine HCl [Effexor XR] 75 mg PO DAILY 11/06/23 11/06/23 History buPROPion XL [Wellbutrin XL] 150 mg PO DAILY 11/06/23 11/06/23 History predniSONE [Deltasone] 20 mg PO BID 11/06/23 11/06/23 History Allergies Allergy/AdvReac Type Severity Reaction Status Date / Time latex Allergy Rash/Hives Verified 11/06/23 08:35 oxcarbazepine AdvReac "physical Verified 11/06/23 08:35 [From Trileptal] reactions" Physical Exam Osteopathic Statement: *. No significant issues noted on an osteopathic structural exam other than those noted in the History and Physical/Consult. Vitals: Vital Signs Temp Pulse Resp BP Pulse Ox 11/06/23 07:31 98.3 F 57 L 18 122/67 94 L 11/06/23 05:09 84 11/06/23 05:01 78 11/06/23 04:30 86 20 126/76 95 11/06/23 02:10 20 11/06/23 01:49 98.8 F 91 20 127/78 94 L Intake and Output 11/05/23 11/06/23 11/06/23 22:59 06:59 14:59 Other: Weight 81.647 kg Results CBC & Chem 7: 11/06/23 08:04 11/06/23 08:04 Labs: Abnormal Lab Results - Last 24 Hours (Table) 11/06/23 Range/Units 02:32 RSV (PCR) Detected A (Not Detectd)
[2023-11-06] MEDS: ALBUTEROL NEBULIZED 2.5 MG/3 ML INHALATION SCH (07:49)
[2023-11-06] MEDS: methylPREDNISolone SOD SUCCI 125 MG/2 ML VIAL IV STA (08:26)
[2023-11-06] MEDS: AZITHROMYCIN 500 MG TAB PO SCH (08:27)
[2023-11-06 08:52] LABS: HGB 13.3 gm/dL (11.4-16.0); MCH 29.7 pg (25.0-35.0); MCHC 32.4 g/dL (31.0-37.0); MCV 91.8 fL (80.0-100.0); Platelet Count 312 k/uL (150-450); RBC 4.47 m/uL (3.80-5.40); RDW 12.9 % (11.5-15.5); WBC 5.6 k/uL (3.8-10.6)
[2023-11-06] MEDS ORDERED: AMOXIC-POT CLAV 875-125MG 1 EACH TAB PO SCH (09:00)
[2023-11-06 09:11] LABS: ALT 14 U/L (4-34); African American GFR (CKD) >90 (>60 ml/min/1.73 sqM); Albumin 4.3 g/dL (3.5-5.0); Albumin/Globulin Ratio 1.7; Anion Gap 11 mmol/L; Blood Urea Nitrogen 7 mg/dL (7-17); Calcium 9.5 mg/dL (8.4-10.2); Carbon Dioxide 20 mmol/L (22-30); Chloride 109 mmol/L (98-107); Globulin 2.5 g/dL; Glucose 149 mg/dL (74-99); Non-African American GFR(CKD) >90 (>60 ml/min/1.73 sqM); Sodium 140 mmol/L (137-145); Total Bilirubin 0.8 mg/dL (0.2-1.3); Total Protein 6.8 g/dL (6.3-8.2)
[2023-11-06 09:24] LABS: AST 21 U/L (14-36); Alkaline Phosphatase 62 U/L (38-126); Magnesium 1.9 mg/dL (1.6-2.3); Phosphorus 4.8 mg/dL (2.5-4.5); Potassium 3.7 mmol/L (3.5-5.1)
[2023-11-06] MEDS ORDERED: NICOTINE GUM (POLACRILEX) 2 MG GUM BUCCAL PRN (10:02)
[2023-11-06] MEDS ORDERED: NICOTINE 14MG/24HR PATCH TRANSDERM PRN (10:02)
[2023-11-06] MEDS: SODIUM CHLORIDE 0.45% 1,000 ML IV SCH (10:05)
[2023-11-06] MEDS: methylPREDNISolone SOD SUCCI 125 MG/2 ML VIAL IV SCH (11:01)
--- NOTE | 2023-11-06 14:10 | P.CNPUL ---
History of Present Illness Consult date: 11/06/23 Reason for consult: asthma History of present illness: This is a very pleasant 23-year-old. Patient with history of mild intermittent bronchial asthma who has been doing well without any maintenance respiratory medications and the patient has been utilizing only albuterol rescue inhaler and utilization of albuterol has been minimal. The patient also has occasional acid reflux without any significant environmental allergies. No previous h ospitalization for asthma related complications. The patient works at [email or web address]. The patient came in with worsening shortness of breath cough chest tightness and wheezing.The patient was also found to be hypoxic and she was placed on 2 L of oxygen by nasal cannula. Chest x-ray at time of admission showed perihilar right lower lobe pulmonary infiltrate and the patient check positive for RSV. Influenza was negative. COVID-19 was negative. The white cell count of 5.6 with a hemoglobin of 16.3. BUN is at 7 with a creatinine 0.6 and a sodium level is at 140. Immediately, the patient was started on Bentyl nebulized treatments [id number] and she was started also on IV Solu- Medrol. She is already feeling better on 2 L of oxygen by nasal cannula. She remains actively bronchospastic and wheezy. No nausea vomiting. No diarrhea. No abdominal pain. No chest pain. No swelling in lower extremities. History is essentially negative for any other medical problems and comorbidities. Review of Systems Constitutional: Reports fatigue, Reports fever Eyes: denies as per HPI, denies blurred vision, denies bulging eye, denies decreased vision, denies diplopia, denies discharge, denies dry eye, denies irritation, denies itching, denies pain, denies photophobia, denies loss of peripheral vision, denies loss of vision, denies tunnel vision/blind spots Ears: deny: decreased hearing, ear discharge, earache, tinnitus Ears, nose, mouth and throat: Reports as per HPI Breasts: absent: as per HPI, change in shape, gynecomastia, masses, nipple disc harge, pain, skin changes, swelling Cardiovascular: Reports decreased exercise tolerance, Reports dyspnea on exertion Respiratory: Reports cough, Reports dyspnea, Reports wheezing Gastrointestinal: Reports as per HPI Genitourinary: Reports as per HPI Menstruation: Reports as per HPI Musculoskeletal: Reports as per HPI Musculoskeletal: absent: ankle pain, ankle stiffness, ankle swelling, as per HPI, elbow pain, elbow stiffness, elbow swelling, foot pain, foot stiffness, foot swelling, hand pain, hand stiffness, hand swelling, hip pain, hip stiffness, hip swelling, knee pain, knee stiffness, knee swelling, shoulder pain , shoulder stiffness, shoulder swelling, wrist pain, wrist stiffness, wrist swelling Integumentary: Reports as per HPI Neurological: Reports as per HPI Psychiatric: Reports as per HPI Endocrine: Reports as per HPI Hematologic/Lymphatic: Reports as per HPI Allergic/Immunologic: Reports as per HPI Past Medical History Past Medical History: No Reported History, Asthma (not using any maintenance inhalers, used to take Advair in the past), Thyroid Disorder Additional Past Medical History / Comment(s): CP History of Any Multi-Drug Resistant Organisms: None Reported Past Surgical History: No Surgical Hx Reported Past Psychological History: Bipolar, Depression Smoking Status: Vaper Past Alcohol Use History: None Reported Past Drug Use History: Marijuana Medications and Allergies Home Medications Medication Instructions Recorded Confirmed Type Albuterol Inhaler [Ventolin Hfa 2 puff INHALATION RT-Q6H PRN 11/06/23 11/06/23 History Inhaler] Albuterol Nebulized [Ventolin 2.5 mg INHALATION RT-Q6H PRN 11/06/23 11/06/23 History Nebulized] Levothyroxine Sodium [Synthroid] 50 mcg PO DAILY 11/06/23 11/06/23 History Venlafaxine HCl [Effexor XR] 75 mg PO DAILY 11/06/23 11/06/23 History buPROPion XL [Wellbutrin XL] 150 mg PO DAILY 11/06/23 11/06/23 History predniSONE [Deltasone] 20 mg PO BID 11/06/23 11/06/23 History Allergies Allergy/AdvReac Type Severity Reaction Status Date / Time latex Allergy Rash/Hives Verified 11/06/23 08:35 oxcarbazepine AdvReac "physical Verified 11/06/23 08:35 [From Trileptal] reactions" Physical Exam Vitals: Vital Signs Temp Pulse Resp BP Pulse Ox 11/06/23 09:36 68 18 124/71 95 11/06/23 08:00 72 11/06/23 07:50 78 93 L 11/06/23 07:31 98.3 F 57 L 18 122/67 94 L 11/06/23 05:09 84 11/06/23 05:01 78 11/06/23 04:30 86 20 126/76 95 11/06/23 02:10 20 11/06/23 01:49 98.8 F 91 20 127/78 94 L Intake and Output 11/05/23 11/06/23 11/06/23 22:59 06:59 14:59 Other: Weight 81.647 kg General: nontoxic, no distress, appears at stated age, currently on 2 L of oxygen by nasal cannula and breathing is nonlabored at this point in time. Head exam was generally normal. There was no scleral icterus or corneal arcus. Mucous membranes were moist. Derm: warm, dry Eyes: EOMI, no lid lag, anicteric sclera, pupils equal round reactive to light ENT: Nose and ears atraumatic Cardiovascular: S1S2 reg, no murmur, no edema Lungs: + wheeze bilateral, no accessory muscle use Abdominal: soft, nontender to palpation, no guarding Ext: no gross muscle atrophy, no contractures Neuro: CN II-XII grossly intact, No focal neuro deficits Psych: Alert, oriented, appropriate affect Examination of the skin revealed no evidence of significant rashes, suspicious appearing nevi or other concerning lesions. Results - Laboratory Findings CBC and BMP: 11/06/23 08:04 11/06/23 08:04 Abnormal lab findings: Abnormal Labs 11/06/23 11/06/23 02:32 08:04 Chloride 109 H Carbon Dioxide 20 L Glucose 149 H Phosphorus 4.8 H RSV (PCR) Detected A - Diagnostic Findings Chest x-ray: image reviewed Assessment and Plan Plan: Acute exacerbation of chronic intermittent mild bronchial asthma Acute hypoxic respiratory failure currently on 2 L of oxygen by nasal cannula acute RSV infection/pneumonia with perihilar pulmonary filtrates worse on the right Hypothyroidism History of marijuana smoking Plan Continue bronchodilators with Ventolin updrafts IV Solu-Medrol Monitor oxygenation and titrate oxygen flow to maintain saturation above 90% Restart Synthroid and Effexor and Wellbutrin Will continue to follow
[2023-11-06] MEDS: FAMOTIDINE 20 MG TAB PO SCH (21:22)
[2023-11-06] MEDS: SODIUM CHLORIDE 0.65% NASAL SPRAY 44 ML BTL NASAL PRN (23:28)
[2023-11-06] MEDS: ALBUTEROL NEBULIZED 2.5 MG/3 ML INHALATION PRN (23:29)
[2023-11-07] MEDS: LEVOTHYROXINE 50 MCG TAB PO SCH (05:42)
[2023-11-07] MEDS: VENLAFAXINE HCL ER 75 MG CAP PO SCH (09:18)
[2023-11-07] MEDS: buPROPion XL 150 MG TAB.ER.24H PO SCH (09:18)
--- NOTE | 2023-11-07 14:52 | P.PN ---
Subjective Progress Note Date: 11/07/23 Pt still short of breath and requiring oxygen. Will attempt to wean today. Gen: In NAD, non-toxic HEENT: normocephalic, atraumatic, hearing acuity is intant, mucous membranes moist CVS: perfusing all extremities well, no pitting edema, Respiratory: symmetric chest expansion, no accessory muscle use, bilateral wheezing GI: soft, NTTP, ND, : no suprapubic tenderness, no CVA tenderness MSK/Derm: no rashes, cyanosis Neuro: CN II-XII intact, no motor weakness, Psych: cooperative, euthymic mood, judgment and insight is intact Hospital Course: Patient is a 23-year-old female with a past medical history for asthma, history of nicotine dependency, and marijuana use who presented to the emergency de partment with complaints of shortness of breath. Patient had been seen at urgent care 2 days ago and was started on steroids and breathing treatments. She continued to have worsening shortness of breath and she therefore presented to the emergency department. Initial vitals in the ER were within normal limits. Influenza A/B/RSV/COVID testing demonstrated an RSV infection. In the ER she received 1 breathing treatment, Zithromax, and Rocephin. She was placed in observation. Patient seen and examined at bedside. She reports for the last 4 days she has had worsening shortness of breath, wheezing, and a nonproductive cough. She is unsure about any fevers at home. She has had some sore throat and nasal stuffiness. She denies any runny nose. She has been feeling slightly fatigued. She does report it is slightly difficult to eat due to her severe sore throat but her appetite has been intact. She has been using her steroids and nebulizer at home. She typically is not on any maintenance inhalers and does not follow with a p 3 armament/ordnance ima technician but does see a primary care physician. Assessment/Plan: Acute exacerbation of Asthma RSV pneumonia - place patient in observation, upgraded to inpatient due to ongoing oxygen need - solumedrol 125 mg IV X 1 now and start 60 mg IV every 6 hours -Albuterol every 4 hours scheduled and every 2 hours as needed -Check labs as not have been performed yet including CBC, CMP, mag, Phos -Will hold off on antibiotics at this time as patient has a pneumonia but likely is related to her positive RSV testing and antibiotics will be of no benefit. -Wean O2 as able -pulm consult appreciated -We had a long discussion that RSV takes several weeks to improve and that she may have continued shortness of breath and wheezing upon discharge. Hypothyroidism -Synthroid 50 mcg daily Nicotine dependency -Nicotine patch 14 mcg once daily as needed, nicotine gum 2 mg every 2 hours as needed Imaging: Chest x-rays reviewed by myself shows right perihilar infiltrate Data Review: Labs ordered and reviewed include CBC and CMP which are remarkable for glucose of 149. Phosphorus elevated at 4.8 and magnesium normal at 1.9. The patient is placed in observation for RSV pneumonia DVT prophylaxis: early ambulation This dictation was prepared using [employer] voice recognition software. Though every attempt is made to correct errors during dictation some may still exist. Objective - Vital Signs Vital signs: Vital Signs Temp 98.0 F 11/07/23 14:12 Pulse 89 11/07/23 14:12 Resp 14 11/07/23 14:12 BP 136/79 11/07/23 14:12 Pulse Ox 94 L 11/07/23 14:12 FiO2 Intake & Output 11/06/23 11/07/23 11/07/23 18:59 06:59 18:59 Intake Total 118 Balance 118 Weight 81.647 kg Intake: Oral 118 Other: Voiding Method Toilet # Voids 2 2 - Labs CBC & Chem 7: 11/06/23 08:04 11/06/23 08:04 Labs: Microbiology - Last 24 Hours (Table) 11/06/23 07:10 Blood Culture - Preliminary Blood
--- NOTE | 2023-11-07 15:44 | P.PN ---
Subjective Progress Note Date: 11/07/23 This is a very pleasant 23-year-old. Patient with history of mild intermittent bronchial asthma who has been doing well without any maintenance respiratory medications and the patient has been utilizing only albuterol rescue inhaler and utilization of albuterol has been minimal. The patient also has occasional acid reflux without any significant environmental allergies. No previous hospitalization for asthma related complications. The patient works at [employer]. The patient came in with worsening shortness of breath cough chest tightness and wheezing.The patient was also found to be hypoxic and she was placed on 2 L of oxygen by nasal cannula. Chest x-ray at time of admission showed perihilar right lower lobe pulmonary infiltrate and the patient check positive for RSV. Influenza was negative. COVID-19 was negative. The white cell count of 5.6 with a hemoglobin of 16.3. BUN is at 7 with a creatinine 0.6 and a sodium level is at 140. Immediately, the patient was started on Bentyl nebulized treatments [id number] and she was started also on IV Solu- Medrol. She is already feeling better on 2 L of oxygen by nasal cannula. She remains actively bronchospastic and wheezy. No nausea vomiting. No diarrhea. No abdominal pain. No chest pain. No swelling in lower extremities. History is essentially negative for any other medical problems and comorbidities. On today's evaluation of , the patient is being seen for a follow-up. The patient is feeling better. Less short of breath. She is currently on a 35% Ventimask. No significant chest pain. Cough and congestion is still present.The patient's blood work was essentially negative. The viral screen was positive for RSV. Rest of the viral panel was negative. Patient has no other new complaints otherwise for now. She works at [employer]. Objective - Vital Signs Vital signs: Vital Signs Temp 98.0 F 11/07/23 14:12 Pulse 89 11/07/23 14:12 Resp 14 11/07/23 14:12 BP 136/79 11/07/23 14:12 Pulse Ox 94 L 11/07/23 14:12 FiO2 Intake & Output 11/06/23 11/07/23 11/07/23 18:59 06:59 18:59 Intake Total 118 Balance 118 Weight 81.647 kg Intake: Oral 118 Other: Voiding Method Toilet # Voids 2 2 - Exam General: nontoxic, no distress, appears at stated age, currently on 35% Ventimask of oxygen by nasal cannula and breathing is nonlabored at this point in time. Head exam was generally normal. There was no scleral icterus or corneal arcus. Mucous membranes were moist. Derm: warm, dry Eyes: EOMI, no lid lag, anicteric sclera, pupils equal round reactive to light ENT: Nose and ears atraumatic Cardiovascular: S1S2 reg, no murmur, no edema Lungs: + wheeze bilateral, no accessory muscle use Abdominal: soft, nontender to palpation, no guarding Ext: no gross muscle atrophy, no contractures Neuro: CN II-XII grossly intact, No focal neuro deficits Psych: Alert, oriented, appropriate affect Examination of the skin revealed no evidence of significant rashes, suspicious appearing nevi or other concerning lesions. - Labs CBC & Chem 7: 11/06/23 08:04 11/06/23 08:04 Labs: Microbiology - Last 24 Hours (Table) 11/06/23 07:10 Blood Culture - Preliminary Blood Assessment and Plan Plan: Acute exacerbation of chronic intermittent mild bronchial asthma Acute hypoxic respiratory failure currently on 35% Ventimask Hypothyroidism History of marijuana smoking Plan Clinically slightly improved compared to yesterday. Continues to be hypoxic. Repeat chest x-ray in the morning Continue bronchodilators with Ventolin updrafts IV Solu-Medrol Monitor oxygenation and titrate oxygen flow to maintain saturation above 90% Restart Synthroid and Effexor and Wellbutrin Will continue to follow
--- NOTE | 2023-11-08 08:12 | XR ---
EXAMINATION TYPE: XR chest 1V DATE OF EXAM: 11/08/2023 COMPARISON: 11/16/2020 HISTORY: Pneumonia TECHNIQUE: Single frontal view of the chest is obtained. FINDINGS: There is no focal air space opacity, pleural effusion, or pneumothorax seen. The cardiac silhouette size is within normal limits. The osseous structures are intact. Interstitium slightly c oarsened. A lucency in the left paratracheal region may represent air within the esophagus correlate clinically to exclude small amount of pneumomediastinum. IMPRESSION: 1. Correlate for bronchitis or interstitial pneumonitis. 2. Suspect the lucency and air density along the left paratracheal region may be within the esophagus rather than pneumomediastinum. Correlate clinically
--- NOTE | 2023-11-08 11:25 | P.PN ---
Subjective Progress Note Date: 11/08/23 Pt still short of breath and requiring oxygen. Will attempt to wean again today. Gen: In NAD, non-toxic HEENT: normocephalic, atraumatic, hearing acuity is intant, mucous membranes moist CVS: perfusing all extremities well, no pitting edema, Respiratory: symmetric chest expansion, no accessory muscle use, bilateral wheezing GI: soft, NTTP, ND, : no suprapubic tenderness, no CVA tenderness MSK/Derm: no rashes, cyanosis Neuro: CN II-XII intact, no motor weakness, Psych: cooperative, euthymic mood, judgment and insight is intact Hospital Course: Patient is a 23-year-old female with a past medical history for asthma, history of nicotine dependency, and marijuana use who presented to the emergency department with complaints of shortness of breath. Patient had been seen at urgent care 2 days ago and was started on steroids and breathing treatments. She continued to have worsening shortness of breath and she therefore presented to the emergency department. Initial vitals in the ER were within normal limits. Influenza A/B/RSV/COVID testing demonstrated an RSV infection. In the ER she received 1 breathing treatment, Zithromax, and Rocephin. She was placed in observation. Patient seen and examined at bedside. She reports for the last 4 days she has had worsening shortness of breath, wheezing, and a nonproductive cough. She is unsure about any fevers at home. She has had some sore throat and nasal stuffiness. She denies any runny nose. She has been feeling slightly fatigued. She does report it is slightly difficult to eat due to her severe sore throat but her appetite has been intact. She has been using her steroids and nebulizer at home. She typically is not on any maintenance inhalers and does not follow with a oncology rn but does see a primary care physician. Assessment/Plan: Acute exacerbation of Asthma RSV pneumonia - place patient in observation, upgraded to inpatient due to ongoing oxygen need - solumedrol 60 mg IV every 6 hours -Albuterol every 4 hours scheduled and every 2 hours as needed -Will hold off on antibiotics at this time as patient has a pneumonia but likely is related to her positive RSV testing and antibiotics will be of no benefit. -Wean O2 as able -pulm consult appreciated Hypothyroidism -Synthroid 50 mcg daily Nicotine dependency -Nicotine patch 14 mcg once daily as needed, nicotine gum 2 mg every 2 hours as needed The patient is placed in observation for RSV pneumonia DVT prophylaxis: early ambulation This dictation was prepared using [employer] voice recognition software. Though every attempt is made to correct errors during dictation some may still exist. Objective - Vital Signs Vital signs: Vital Signs Temp 97.8 F 11/08/23 07:00 Pulse 88 11/08/23 08:57 Resp 20 11/08/23 08:00 BP 142/76 11/08/23 07:00 Pulse Ox 94 L 11/08/23 07:00 FiO2 35 11/08/23 08:44 Intake & Output 11/07/23 11/08/23 11/08/23 18:59 06:59 18:59 Intake Total 416 118 Balance 416 118 Intake: Oral 416 118 Other: Voiding Method Toilet Toilet # Voids 2 2 - Labs CBC & Chem 7: 11/06/23 08:04 11/06/23 08:04 Labs: Microbiology - Last 24 Hours (Table) 11/06/23 07:31 Blood Culture - Preliminary Blood 11/06/23 07:10 Blood Culture - Preliminary Blood
--- NOTE | 2023-11-08 15:14 | P.PN ---
Subjective Progress Note Date: 11/08/23 This is a very pleasant 23-year-old. Patient with history of mild intermittent bronchial asthma who has been doing well without any maintenance respiratory medications and the patient has been utilizing only albuterol rescue inhaler and utilization of albuterol has been minimal. The patient also has occasional acid reflux without any significant environmental allergies. No previous hospitalization for asthma related complications. The patient works at [employer]. The patient came in with worsening shortness of breath cough chest tightness and wheezing.The patient was also found to be hypoxic and she was placed on 2 L of oxygen by nasal cannula. Chest x-ray at time of admission showed perihilar right lower lobe pulmonary infiltrate and the patient check positive for RSV. Influenza was negative. COVID-19 was negative. The white cell count of 5.6 with a hemoglobin of 16.3. BUN is at 7 with a creatinine 0.6 and a sodium level is at 140. Immediately, the patient was started on Bentyl nebulized treatments [id number] and she was started also on IV Solu- Medrol. She is already feeling better on 2 L of oxygen by nasal cannula. She remains actively bronchospastic and wheezy. No nausea vomiting. No diarrhea. No abdominal pain. No chest pain. No swelling in lower extremities. History is essentially negative for any other medical problems and comorbidities. On today's evaluation of , the patient is being seen for a follow-up. The patient is feeling better. Less short of breath. She is currently on a 35% Ventimask. No significant chest pain. Cough and congestion is still present.The patient's blood work was essentially negative. The viral screen was positive for RSV. Rest of the viral panel was negative. Patient has no other new complaints otherwise for now. She works at [employer]. On today's evaluation of 11/08/2023, the patient is being seen for a follow-up. The patient remains hypoxic and she is requiring 35% Ventimask with 10 L of oxygen. Her chest x-ray also showing viral pneumonia consistent with RSV pneumonia. She is less bronchospastic and wheezy compared to yesterday and she seems to be improving.No new labs are available from today. Medications are essentially unchanged and the patient remains on Ventolin updrafts, and IV Solu- Medrol. Treatment is essentially supportive. Objective - Vital Signs Vital signs: Vital Signs Temp 97.8 F 11/08/23 14:46 Pulse 80 11/08/23 14:46 Resp 20 11/08/23 14:46 BP 110/71 11/08/23 14:46 Pulse Ox 93 L 11/08/23 14:46 FiO2 35 11/08/23 08:44 Intake & Output 11/07/23 11/08/23 11/08/23 18:59 06:59 18:59 Intake Total 416 736 Balance 416 736 Intake: Oral 416 736 Other: Voiding Method Toilet Toilet # Voids 2 2 3 - Exam General: nontoxic, no distress, appears at stated age, currently on 35% Ventimask of oxygen by nasal cannula and breathing is nonlabored at this point in time. Head exam was generally normal. There was no scleral icterus or corneal arcus. Mucous membranes were moist. Derm: warm, dry Eyes: EOMI, no lid lag, anicteric sclera, pupils equal round reactive to light ENT: Nose and ears atraumatic Cardiovascular: S1S2 reg, no murmur, no edema Lungs: + wheeze bilateral, no accessory muscle use Abdominal: soft, nontender to palpation, no guarding Ext: no gross muscle atrophy, no contractures Neuro: CN II-XII grossly intact, No focal neuro deficits Psych: Alert, oriented, appropriate affect Examination of the skin revealed no evidence of significant rashes, suspicious appearing nevi or other concerning lesions. - Labs CBC & Chem 7: 11/06/23 08:04 11/06/23 08:04 Labs: Microbiology - Last 24 Hours (Table) 11/06/23 07:10 Blood Culture - Preliminary Blood 11/06/23 07:31 Blood Culture - Preliminary Blood Assessment and Plan Plan: Acute exacerbation of chronic intermittent mild bronchial asthma, slightly improved and the patient's chest x-ray from today is still showing bilateral interstitial pneumonia Acute hypoxic respiratory failure currently on 35% Ventimask, oxygen requirements remains unchanged Hypothyroidism History of marijuana smoking Plan Clinically improving and the patient continues to be hypoxic on 35% Ventimask. Will continue oxygen supplementation. Repeat chest x-ray in the morning was noted and is consistent with viral pneumonia Continue bronchodilators with Ventolin updrafts IV Solu-Medrol, still at a dose of 60 mg IV every 6 hours Monitor oxygenation and titrate oxygen flow to maintain saturation above 90% Restart Synthroid and Effexor and Wellbutrin Will continue to follow
--- NOTE | 2023-11-09 12:20 | P.PN ---
Subjective Progress Note Date: 11/09/23 This is a very pleasant 23-year-old. Patient with history of mild intermittent bronchial asthma who has been doing well without any maintenance respiratory medications and the patient has been utilizing only albuterol rescue inhaler and utilization of albuterol has been minimal. The patient also has occasional acid reflux without any significant environmental allergies. No previous hospitalization for asthma related complications. The patient works at [employer]. The patient came in with worsening shortness of breath cough chest tightness and wheezing.The patient was also found to be hypoxic and she was placed on 2 L of oxygen by nasal cannula. Chest x-ray at time of admission showed perihilar right lower lobe pulmonary infiltrate and the patient check positive for RSV. Influenza was negative. COVID-19 was negative. The white cell count of 5.6 with a hemoglobin of 16.3. BUN is at 7 with a creatinine 0.6 and a sodium level is at 140. Immediately, the patient was started on Bentyl nebulized treatments [id number] and she was started also on IV Solu- Medrol. She is already feeling better on 2 L of oxygen by nasal cannula. She remains actively bronchospastic and wheezy. No nausea vomiting. No diarrhea. No abdominal pain. No chest pain. No swelling in lower extremities. History is essentially negative for any other medical problems and comorbidities. On today's evaluation of , the patient is being seen for a follow-up. The patient is feeling better. Less short of breath. She is currently on a 35% Ventimask. No significant chest pain. Cough and congestion is still present.The patient's blood work was essentially negative. The viral screen was positive for RSV. Rest of the viral panel was negative. Patient has no other new complaints otherwise for now. She works at [employer]. On today's evaluation of 11/08/2023, the patient is being seen for a follow-up. The patient remains hypoxic and she is requiring 35% Ventimask with 10 L of oxygen. Her chest x-ray also showing viral pneumonia consistent with RSV pneumonia. She is less bronchospastic and wheezy compared to yesterday and she seems to be improving.No new labs are available from today. Medications are essentially unchanged and the patient remains on Ventolin updrafts, and IV Solu- Medrol. Treatment is essentially supportive. On today's evaluation of 11/09/2023, the patient was transition to 3 L of oxygen by nasal cannula. She was taken off the Ventimask. No new complaints. She continues to be hypoxemic although reactive hypoxemia gradually is improving. No new labs are available from today. She remains on bronchodilators and steroids and the patient has an RSV pneumonia and her last chest x-ray was from yesterday and showed some persistent interstitial markings bilaterally. No airspace disease or consolidations. Objective - Vital Signs Vital signs: Vital Signs Temp 98.6 F 11/09/23 07:00 Pulse 70 11/09/23 11:14 Resp 14 11/09/23 09:57 BP 138/82 11/09/23 07:00 Pulse Ox 93 L 11/09/23 09:15 FiO2 30 11/09/23 09:15 Intake & Output 11/08/23 11/09/23 11/09/23 18:59 06:59 18:59 Intake Total 736 Balance 736 Intake: Oral 736 Other: Voiding Method Toilet Toilet Toilet # Voids 3 2 - Exam General: nontoxic, no distress, appears at stated age, currently on on 3 L O2 nasal cannula Head exam was generally normal. There was no scleral icterus or corneal arcus. Mucous membranes were moist. Derm: warm, dry Eyes: EOMI, no lid lag, anicteric sclera, pupils equal round reactive to light ENT: Nose and ears atraumatic Cardiovascular: S1S2 reg, no murmur, no edema Lungs: + wheeze bilateral, no accessory muscle use Abdominal: soft, nontender to palpation, no guarding Ext: no gross muscle atrophy, no contractures Neuro: CN II-XII grossly intact, No focal neuro deficits Psych: Alert, oriented, appropriate affect Examination of the skin revealed no evidence of significant rashes, suspicious appearing nevi or other concerning lesions. - Labs CBC & Chem 7: 11/06/23 08:04 11/06/23 08:04 Labs: Microbiology - Last 24 Hours (Table) 11/06/23 07:31 Blood Culture - Preliminary Blood 11/06/23 07:10 Blood Culture - Preliminary Blood Assessment and Plan Plan: Acute exacerbation of chronic intermittent mild bronchial asthma, slightly improved and the patient's chest x-ray from today is still showing bilateral interstitial pneumonia Acute hypoxic respiratory failure currently on 35% Ventimask, and the patient will be transitioned to 3 L of O2 nasal cannula Hypothyroidism History of marijuana smoking Plan Clinically improving Wean off FiO2 and transition the patient to nasal cannula The x-ray on 11/08/2023 was noted and is consistent with viral pneumonia Continue bronchodilators with Ventolin updrafts IV Solu-Medrol, still at a dose of 60 mg IV every 6 hours Monitor oxygenation and titrate oxygen flow to maintain saturation above 90% Continue Synthroid and Effexor and Wellbutrin Will continue to follow
--- NOTE | 2023-11-09 13:09 | P.PN ---
Subjective Progress Note Date: 11/09/23 Pt still short of breath and requiring oxygen. Discussed transitioning pt to NC and weaning as much as possible. Gen: In NAD, non-toxic HEENT: normocephalic, atraumatic, hearing acuity is intant, mucous membranes moist CVS: perfusing all extremities well, no pitting edema, Respiratory: symmetric chest expansion, no accessory muscle use, bilateral wheezing GI: soft, NTTP, ND, : no suprapubic tenderness, no CVA tenderness MSK/Derm: no rashes, cyanosis Neuro: CN II-XII intact, no motor weakness, Psych: cooperative, euthymic mood, judgment and insight is intact Hospital Course: Patient is a 23-year-old female with a past medical history for asthma, history of nicotine dependency, and marijuana use who presented to the emergency department with complaints of shortness of breath. Patient had been seen at urgent care 2 days ago and was started on steroids and breathing treatments. She continued to have worsening shortness of breath and she therefore presented to the emergency department. Initial vitals in the ER were within normal limits. Influenza A/B/RSV/COVID testing demonstrated an RSV infection. In the ER she received 1 breathing treatment, Zithromax, and Rocephin. She was placed in observation. Patient seen and examined at bedside. She reports for the last 4 days she has had worsening shortness of breath, wheezing, and a nonproductive cough. She is unsure about any fevers at home. She has had some sore throat and nasal stuffiness. She denies any runny nose. She has been feeling slightly fatigued. She does report it is slightly difficult to eat due to her severe sore throat but her appetite has been intact. She has been using her steroids and nebulizer at home. She typically is not on any maintenance inhalers and does not follow with a hem inspector but does see a primary care physician. Assessment/Plan: Acute exacerbation of Asthma RSV pneumonia - place patient in observation, upgraded to inpatient due to ongoing oxygen need - solumedrol 60 mg IV every 6 hours -Albuterol every 4 hours scheduled and every 2 hours as needed -Will hold off on antibiotics at this time as patient has a pneumonia but likely is related to her positive RSV testing and antibiotics will be of no benefit. -Wean O2 as able -pulm consult appreciated Hypothyroidism -Synthroid 50 mcg daily Nicotine dependency -Nicotine patch 14 mcg once daily as needed, nicotine gum 2 mg every 2 hours as needed The patient is placed in observation for RSV pneumonia DVT prophylaxis: early ambulation This dictation was prepared using [employer] voice recognition software. Though every attempt is made to correct errors during dictation some may still exist. Objective - Vital Signs Vital signs: Vital Signs Temp 98.6 F 11/09/23 07:00 Pulse 70 11/09/23 11:14 Resp 14 11/09/23 09:57 BP 138/82 11/09/23 07:00 Pulse Ox 93 L 11/09/23 09:15 FiO2 30 11/09/23 09:15 Intake & Output 11/08/23 11/09/23 11/09/23 18:59 06:59 18:59 Intake Total 736 Balance 736 Intake: Oral 736 Other: Voiding Method Toilet Toilet Toilet # Voids 3 2 - Labs CBC & Chem 7: 11/06/23 08:04 11/06/23 08:04 Labs: Microbiology - Last 24 Hours (Table) 11/06/23 07:10 Blood Culture - Preliminary Blood 11/06/23 07:31 Blood Culture - Preliminary Blood
[2023-11-09 14:22] VITALS: RESP 16
[2023-11-10 07:29] VITALS: BP 136/80; TEMP 97.9
--- NOTE | 2023-11-10 10:59 | P.DS ---
Providers Date of admission: 11/07/23 11:58 Expected date of discharge: 11/10/23 Attending physician: Aure De La Cruz MD Consults: 11/06/23 06:20 Consult Physician Urgent Consulting Provider: Miguel A Stover Consult Reason/Comments: asthma exacerbation/pna Do you want consulting provider notified?: Yes Primary care physician: Anamaria Michael MD Hospital Course: Acute exacerbation of Asthma RSV pneumonia Hypothyroidism Nicotine dependency Gen: In NAD, non-toxic HEENT: normocephalic, atraumatic, hearing acuity is intant, mucous membranes moist CVS: perfusing all extremities well, no pitting edema, Respiratory: symmetric chest expansion, no accessory muscle use, bilateral wheezing GI: soft, NTTP, ND, : no suprapubic tenderness, no CVA tenderness MSK/Derm: no rashes, cyanosis Neuro: CN II-XII intact, no motor weakness, Psych: cooperative, euthymic mood, judgment and insight is intact Hospital Course: Patient is a 23-year-old female with a past medical history for asthma, history of nicotine dependency, and marijuana use who presented to the emergency department with complaints of shortness of breath. Patient had been seen at urgent care 2 days ago and was started on steroids and breathing treatments. She continued to have worsening shortness of breath and she therefore presented to the emergency department. Initial vitals in the ER were within normal limits. Influenza A/B/RSV/COVID testing demonstrated an RSV infection. In the ER she received 1 breathing treatment, Zithromax, and Rocephin. She was placed in observation. Pt started on steroids, nebulizers for RSV pneumonia. Seen and followed by pulmonology who agreed with management plan. Pt was eventually weaned to room air with treatment and was discahrged home with prednisone taper and instructions to f/u with PCP. I spent 32 minutes coordinating this discharge on 11/10 Patient Condition at Discharge: Good Plan - Discharge Summary New Discharge Prescriptions: New Famotidine [Pepcid] 20 mg PO BID #30 tab Continue buPROPion XL [Wellbutrin XL] 150 mg PO DAILY Venlafaxine HCl [Effexor XR] 75 mg PO DAILY Levothyroxine Sodium [Synthroid] 50 mcg PO DAILY Albuterol Nebulized [Ventolin Nebulized] 2.5 mg INHALATION RT-Q6H PRN PRN Reason: Shortness Of Breath Albuterol Inhaler [Ventolin Hfa Inhaler] 2 puff INHALATION RT-Q6H PRN PRN Reason: Shortness Of Breath Changed predniSONE [Deltasone] See Rx Instructions .ROUTE .COMPLEX #15 tab Discharge Medication List Albuterol Inhaler [Ventolin Hfa Inhaler] 2 puff INHALATION RT-Q6H PRN 11/06/23 [History] Albuterol Nebulized [Ventolin Nebulized] 2.5 mg INHALATION RT-Q6H PRN 11/06/23 [History] Levothyroxine Sodium [Synthroid] 50 mcg PO DAILY 11/06/23 [History] Venlafaxine HCl [Effexor XR] 75 mg PO DAILY 11/06/23 [History] buPROPion XL [Wellbutrin XL] 150 mg PO DAILY 11/06/23 [History] Famotidine [Pepcid] 20 mg PO BID #30 tab 11/10/23 [Rx] predniSONE [Deltasone] See Rx Instructions .ROUTE .COMPLEX #15 tab 11/10/23 [Rx] Follow up Appointment(s)/Referral(s): Anamaria Michael MD [Primary Care Provider] - 1-2 days Discharge Disposition: HOME SELF-CARE
[2023-11-10 11:40] VITALS: PULSE 68
--- NOTE | 2023-11-10 14:05 | P.PN ---
Subjective Progress Note Date: 11/10/23 This is a very pleasant 23-year-old. Patient with history of mild intermittent bronchial asthma who has been doing well without any maintenance respiratory medications and the patient has been utilizing only albuterol rescue inhaler and utilization of albuterol has been minimal. The patient also has occasional acid reflux without any significant environmental allergies. No previous hospitalization for asthma related complications. The patient works at [employer]. The patient came in with worsening shortness of breath cough chest tightness and wheezing.The patient was also found to be hypoxic and she was placed on 2 L of oxygen by nasal cannula. Chest x-ray at time of admission showed perihilar right lower lobe pulmonary infiltrate and the patient check positive for RSV. Influenza was negative. COVID-19 was negative. The white cell count of 5.6 with a hemoglobin of 16.3. BUN is at 7 with a creatinine 0.6 and a sodium level is at 140. Immediately, the patient was started on Bentyl nebulized treatments [id number] and she was started also on IV Solu- Medrol. She is already feeling better on 2 L of oxygen by nasal cannula. She remains actively bronchospastic and wheezy. No nausea vomiting. No diarrhea. No abdominal pain. No chest pain. No swelling in lower extremities. History is essentially negative for any other medical problems and comorbidities. On today's evaluation of , the patient is being seen for a follow-up. The patient is feeling better. Less short of breath. She is currently on a 35% Ventimask. No significant chest pain. Cough and congestion is still present.The patient's blood work was essentially negative. The viral screen was positive for RSV. Rest of the viral panel was negative. Patient has no other new complaints otherwise for now. She works at [employer]. On today's evaluation of 11/08/2023, the patient is being seen for a follow-up. The patient remains hypoxic and she is requiring 35% Ventimask with 10 L of oxygen. Her chest x-ray also showing viral pneumonia consistent with RSV pneumonia. She is less bronchospastic and wheezy compared to yesterday and she seems to be improving.No new labs are available from today. Medications are essentially unchanged and the patient remains on Ventolin updrafts, and IV Solu- Medrol. Treatment is essentially supportive. On today's evaluation of 11/09/2023, the patient was transition to 3 L of oxygen by nasal cannula. She was taken off the Ventimask. No new complaints. She continues to be hypoxemic although reactive hypoxemia gradually is improving. No new labs are available from today. She remains on bronchodilators and steroids and the patient has an RSV pneumonia and her last chest x-ray was from yesterday and showed some persistent interstitial markings bilaterally. No airspace disease or consolidations. On 11/10/2023, the patient continues to improve. She was able to continue using the incentive spirometer and the patient was noted to have improvement in oxygenation. On room air pulse ox, the patient is able to maintain above 90%. She is not fully recovered yet the rest of the treatment can be done on outpatient basis as the patient will be continued on DuoNeb updrafts and a prednisone burst taper. No altered mentation. No fevers or chills. No other new complaints for now. Exacerbation of asthma was related to RSV infection the patient also had a mild component of viral pneumonia. No chest pain. No use of accessory muscles of breathing and the patient's breathing is nonlabored. Objective - Vital Signs Vital signs: Vital Signs Temp 97.9 F 11/10/23 07:00 Pulse 72 11/10/23 08:43 Resp 16 11/10/23 08:11 BP 136/80 11/10/23 07:00 Pulse Ox 93 L 11/10/23 08:35 FiO2 21 11/10/23 08:35 Intake & Output 11/09/23 11/10/23 11/10/23 18:59 06:59 18:59 Other: Voiding Method Toilet Toilet # Voids 1 3 # Bowel Movements 1 - Exam General: nontoxic, no distress, appears at stated age, currently on on room air oxygen Head exam was generally normal. There was no scleral icterus or corneal arcus. Mucous membranes were moist. Derm: warm, dry Eyes: EOMI, no lid lag, anicteric sclera, pupils equal round reactive to light ENT: Nose and ears atraumatic Cardiovascular: S1S2 reg, no murmur, no edema Lungs: + wheeze bilateral, no accessory muscle use Abdominal: soft, nontender to palpation, no guarding Ext: no gross muscle atrophy, no contractures Neuro: CN II-XII grossly intact, No focal neuro deficits Psych: Alert, oriented, appropriate affect Examination of the skin revealed no evidence of significant rashes, suspicious appearing nevi or other concerning lesions. - Labs CBC & Chem 7: 11/06/23 08:04 11/06/23 08:04 Labs: Microbiology - Last 24 Hours (Table) 11/09/23 03:00 Gram Stain - Preliminary Sputum 11/06/23 07:31 Blood Culture - Preliminary Blood 11/06/23 07:10 Blood Culture - Preliminary Blood Assessment and Plan Plan: Acute exacerbation of chronic intermittent mild bronchial asthma, slightly improved and the patient's chest x-ray from today is still showing bilateral interstitial pneumonia Acute hypoxic respiratory failure improved and the patient is currently on room air oxygen Shortness of breath secondary to above, improving Hypothyroidism History of marijuana smoking Plan Clinically improving Patient is currently on room air oxygen The x-ray on 11/08/2023 was noted and is consistent with viral pneumonia Continue bronchodilators with Ventolin updrafts and this can be continued on outpatient basis Prednisone burst taper at time of discharge starting with 40 mg to be taken with pentagrams every 4 days Outpatient follow-up regarding the pneumonia and asthma Continue Synthroid and Effexor and Wellbutrin Will continue to follow
== END 2023-11-10 12:14 | disposition home or self-care (01) | DRG 189 ==
LOC: EC 01:47 → 6NMEDSUR 05:49 → OBSVTOIN 11-07 11:58
PROVIDERS: ADMIT Internal Medicine; ATTEND Internal Medicine
DX: J96.01 Acute respiratory failure with hypoxia (principal); J12.1 Respiratory syncytial virus pneumonia; J45.21 Mild intermittent asthma with (acute) exacerbation; E03.9 Hypothyroidism, unspecified; F17.290 Nicotine dependence, other tobacco product, uncomplicated; F31.9 Bipolar disorder, unspecified; K21.9 Gastro-esophageal reflux disease without esophagitis; Z79.890 Hormone replacement therapy; Z79.899 Other long term (current) drug therapy; Z88.8 Allergy status to other drugs, medicaments and biological substances; Z91.040 Latex allergy status; Z79.52 Long term (current) use of systemic steroids
CPT/HCPCS: 71045; 71046; 80053; 83735; 84100; 85027; 87040; 87070; 87205; 87449; 87636; 94640; 94760; 96361; 96365; 96375; 99285

== ENCOUNTER 2025-02-16 22:50 | Emergency (ER) | payer BC ==
[2025-02-16] MEDS: ACETAMINOPHEN TAB 500 MG TAB PO STA (23:37)
[2025-02-16] MEDS: KETOROLAC 15 MG/ML 1 ML VIAL IVP STA (23:37)
[2025-02-16] MEDS: SODIUM CHLORIDE 0.9% 1,000 ML IV ONE (23:37)
[2025-02-16] MEDS: ONDANSETRON 4 MG/2 ML VIAL IVP STA (23:42)
[2025-02-16] MEDS: PHENAZOPYRIDINE 200 MG TAB PO STA (23:42)
--- NOTE | 2025-02-16 23:45 | ED ---
Female Urogenital HPI - General Chief complaint: Urogenital Stated complaint: Abdominal pain Time Seen by Provider: 02/16/25 23:04 Source: patient, RN notes reviewed Mode of arrival: ambulatory Limitations: no limitations - History of Present Illness Initial comments: This is a 24-year-old female who presents to the emergency department for pelvic pain and urinary symptoms. States that 2 days ago she started to develop burning with urination and genital discomfort. Symptoms have since progressed in terms of pain and she is also having pain and pressure in the suprapubic region. She has also started to notice small painful bumps scattered across the vulvar region. Reports possible STI exposure. Denies any history of STIs. She started noticing fevers earlier today. Reports a history of UTIs but states that symptoms feel different. - Related Data Home Medications Medication Instructions Recorded Confirmed Albuterol Inhaler [Ventolin Hfa 2 puff INHALATION RT-Q6H PRN 11/06/23 11/06/23 Inhaler] Albuterol Nebulized [Ventolin 2.5 mg INHALATION RT-Q6H PRN 11/06/23 11/06/23 Nebulized] Levothyroxine Sodium [Synthroid] 50 mcg PO DAILY 11/06/23 11/06/23 Venlafaxine HCl [Effexor XR] 75 mg PO DAILY 11/06/23 11/06/23 buPROPion XL [Wellbutrin XL] 150 mg PO DAILY 11/06/23 11/06/23 Previous Rx's Medication Instructions Recorded Famotidine [Pepcid] 20 mg PO BID #30 tab 11/10/23 predniSONE [Deltasone] See Rx Instructions .ROUTE 11/10/23 .COMPLEX #15 tab Doxycycline Hyclate 100 mg PO BID 7 Days #14 tab 02/17/25 Nitrofurantoin Monohyd/M-Cryst 100 mg PO Q12HR 5 Days #10 cap 02/17/25 [Macrobid] Phenazopyridine [Pyridium] 200 mg PO TID #9 tablet 02/17/25 valACYclovir HCL [Valacyclovir] 1,000 mg PO BID 10 Days #20 tab 02/17/25 Allergies Allergy/AdvReac Type Severity Reaction Status Date / Time latex Allergy Rash/Hives Verified 02/16/25 23:03 oxcarbazepine AdvReac "physical Verified 02/16/25 23:03 [From Trileptal] reactions" Review of Systems ROS Statement: Those systems with pertinent positive or pertinent negative responses have been documented in the HPI. ROS Other: All systems not noted in ROS Statement are negative. Past Medical History Past Medical History: No Reported History, Asthma, Thyroid Disorder Additional Past Medical History / Comment(s): CP History of Any Multi-Drug Resistant Organisms: None Reported Past Surgical History: No Surgical Hx Reported Past Psychological History: Bipolar, Depression Smoking Status: Vaper Past Alcohol Use History: None Reported Past Drug Use History: Marijuana General Exam Limitations: no limitations General appearance: alert, in no apparent distress Head exam: Present: atraumatic, normocephalic, normal inspection Respiratory exam: Present: normal lung sounds bilaterally. Absent: respiratory distress, wheezes, rales, rhonchi, stridor Cardiovascular Exam: Present: regular rate, normal rhythm GI/Abdominal exam: Present: soft, tenderness (Suprapubic). Absent: distended External exam: Present: other (Generalized vulvar erythema and swelling with notable tenderness. Scattered bumps over the vulva. White vaginal discharge) Neurological exam: Present: alert, oriented X3, CN II-XII intact Psychiatric exam: Present: normal affect, normal mood Skin exam: Present: warm, dry, intact, normal color. Absent: rash Course Vital Signs 02/16/25 02/17/25 22:57 02:05 Temperature 100.6 F H 98.1 F Pulse Rate 101 H 87 Respiratory 18 16 Rate Blood Pressure 144/88 110/57 O2 Sat by Pulse 97 99 Oximetry Medical Decision Making - Medical Decision Making This is a 24-year-old female who presents to the emergency department for urinary symptoms. Was pt. sent in by a medical professional or institution? @ -No Did you speak to anyone other than the patient for history? @ -No Did you review nursing and triage notes? @ -Yes, and I agree, it is accurate with regards to the patient's symptoms. Were old charts reviewed? @ -No Differential Diagnosis? @ -UTI, STI, BV, yeast infection, this is not meant to be all-inclusive list. EKG interpreted by me (3pts min.)? @ -Not obtained X-rays interpreted by me (1pt min.)? @ -Not obtained CT interpreted by me (1pt min.)? @ -Not obtained U/S interpreted by me (1pt. min.)? @ -Pelvic ultrasound obtained. My interpretation identifies no evidence of an ovarian torsion. What testing was considered but not performed? (CT, X-rays, U/S, labs)? Why? @ -None What meds were considered but not given? Why? @ -None Did you discuss the management of the patient with other professionals? @ -No Did you reconcile home meds? @ -No Was smoking cessation discussed for >3mins.? @ -No Was critical care preformed (if so, how long)? @ -No Were there social determinants of health that impacted care today? How? (Homelessness, low income, unemployed, alcoholism, drug addiction, transportation, low edu. Level, literacy, decrease access to med. care, penitentiary, rehab)? @ -No Was there de-escalation of care discussed even if they declined? (Discuss DNR or withdrawal of care, Hospice)? @ -No What co-morbidities impacted this encounter? (DM, HTN, Smoking, COPD, CAD, Cancer, CVA, Hep., AIDS, mental health diagnosis, sleep apnea, morbid obesity)? @ -None Was patient admitted / discharged? @ -Discharged. Lab work unremarkable. Urinalysis is contaminated, but also suggestive of infection. Urine sent for culture. Pelvic ultrasound reveals no acute process. Physical examination reveals generalized vaginal irritation with scattered lesions. Given the possibility of STI exposure, discussed the possibility of something like HSV. Gonorrhea, chlamydia, and syphilis testing ordered with results pending at the time of discharge. Advised that we will treat her for STIs prophylactically. However, also advised treatment for possible HSV as well as the UTI. Given concern for compliance with multiple medications needed, she was given 2 g of metronidazole as opposed to the 7-day course. She was also given 500 mg of ceftriaxone and an initial dose of doxycycline. Prescription for doxycycline, Macrobid, and Valtrex provided for further management of STD prophylaxis, UTI, and possible HSV infection. Pyridium prescribed to help with dysuria. Advised she continue with ibuprofen and Tylenol as needed for fevers and discomfort and follow-up with her primary care provider. Patient discharged home in stable condition. Case discussed with ED attending Dr. Mcrae. Return precautions reviewed in depth, the patient is instructed to return to the emergency department with any new, worsening, or concerning symptoms. Patient verbalized understanding. Undiagnosed new problem with uncertain prognosis? @ -None Drug Therapy requiring intensive monitoring for toxicity (Heparin, Nitro, Insulin, Cardizem)? @ -None Were any procedures done? @ -None Diagnosis/symptom? @ -Possible STI exposure, UTI, genital lesions Acute, or Chronic, or Acute on Chronic? @ -Acute Uncomplicated (without systemic symptoms) or Complicated (systemic symptoms)? @ -Uncomplicated Side effects of treatment? @ -None Exacerbation, Progression, or Severe Exacerbation] @ -Not applicable Poses a threat to life or bodily function? @ -No - Lab Data Result diagrams: 02/16/25 23:35 02/17/25 00:24 Lab Results 02/16/25 02/16/25 02/17/25 Range/Units 23:35 23:35 00:24 WBC 5.38 (4.50-10.00) 10*3/uL RBC 4.47 (4.10-5.20) 10*6/uL Hgb 13.6 (12.0-15.0) g/dL Hct 40.0 (37.2-46.3) % MCV 89.5 (80.0-97.0) fL MCH 30.4 (27.0-32.0) pg MCHC 34.0 (32.0-37.0) g/dL Plt Count 218 (140-440) 10*3/uL MPV 9.9 (9.5-12.2) fL Immature Gran % (Auto) 0.2 % Neutrophils % 78.8 % Lymphocytes % 14.3 % Monocytes % 6.1 % Eosinophils % 0.0 % Basophils % 0.6 % Immature Gran # 0.01 (0.00-0.04) 10*3/uL Neutrophils # 4.24 (1.80-7.70) 10*3/uL Lymphocytes # 0.77 L (0.90-5.00) 10*3/uL Monocytes # 0.33 (0.20-1.00) 10*3/uL Eosinophils # 0.00 L (0.04-0.35) 10*3/uL Basophils # 0.03 (0.00-0.10) 10*3/uL Sodium 134 L (137-145) mmol/L Potassium 3.5 (3.5-5.1) mmol/L Chloride 99 (98-107) mmol/L Carbon Dioxide 25 (22-30) mmol/L Anion Gap 10 mmol/L BUN 12 (7-17) mg/dL Creatinine 0.85 (0.52-1.04) mg/dL Est GFR (CKD-EPI)AfAm >90 (>60 ml/min/1.73 sqM) Est GFR (CKD-EPI)NonAf >90 (>60 ml/min/1.73 sqM) Glucose 87 (74-99) mg/dL Plasma Lactic Acid Ze 0.8 (0.7-2.0) mmol/L Calcium 8.5 (8.4-10.2) mg/dL Total Bilirubin 0.8 (0.2-1.3) mg/dL AST 22 (14-36) U/L ALT 13 (4-34) U/L Alkaline Phosphatase 39 (38-126) U/L Total Protein 5.9 L (6.3-8.2) g/dL Albumin 3.6 (3.5-5.0) g/dL Urine Color Urine Appearance (Clear) Urine pH (5.0-8.0) Ur Specific Wheeler (1.001-1.035) Urine Protein (Negative) Urine Glucose (UA) (Negative) Urine Ketones (Negative) Urine Blood (Negative) Urine Nitrite (Negative) Urine Bilirubin (Negative) Urine Urobilinogen (<2.0) mg/dL Ur Leukocyte Esterase (Negative) Urine RBC (0-5) /hpf Urine WBC (0-5) /hpf Urine WBC Clumps (None) /hpf Ur Squamous Epith Cells (0-4) /hpf Urine Mucus (None) /hpf Urine HCG, Qual (Not Detectd) 02/17/25 02/17/25 Range/Units 00:29 00:29 WBC (4.50-10.00) 10*3/uL RBC (4.10-5.20) 10*6/uL Hgb (12.0-15.0) g/dL Hct (37.2-46.3) % MCV (80.0-97.0) fL MCH (27.0-32.0) pg MCHC (32.0-37.0) g/dL Plt Count (140-440) 10*3/uL MPV (9.5-12.2) fL Immature Gran % (Auto) % Neutrophils % % Lymphocytes % % Monocytes % % Eosinophils % % Basophils % % Immature Gran # (0.00-0.04) 10*3/uL Neutrophils # (1.80-7.70) 10*3/uL Lymphocytes # (0.90-5.00) 10*3/uL Monocytes # (0.20-1.00) 10*3/uL Eosinophils # (0.04-0.35) 10*3/uL Basophils # (0.00-0.10) 10*3/uL Sodium (137-145) mmol/L Potassium (3.5-5.1) mmol/L Chloride (98-107) mmol/L Carbon Dioxide (22-30) mmol/L Anion Gap mmol/L BUN (7-17) mg/dL Creatinine (0.52-1.04) mg/dL Est GFR (CKD-EPI)AfAm (>60 ml/min/1.73 sqM) Est GFR (CKD-EPI)NonAf (>60 ml/min/1.73 sqM) Glucose (74-99) mg/dL Plasma Lactic Acid Ze (0.7-2.0) mmol/L Calcium (8.4-10.2) mg/dL Total Bilirubin (0.2-1.3) mg/dL AST (14-36) U/L ALT (4-34) U/L Alkaline Phosphatase (38-126) U/L Total Protein (6.3-8.2) g/dL Albumin (3.5-5.0) g/dL Urine Color Light Red Urine Appearance Turbid H (Clear) Urine pH 6.0 (5.0-8.0) Ur Specific Wheeler 1.024 (1.001-1.035) Urine Protein 1+ H (Negative) Urine Glucose (UA) Negative (Negative) Urine Ketones 1+ H (Negative) Urine Blood Small H (Negative) Urine Nitrite Negative (Negative) Urine Bilirubin Negative (Negative) Urine Urobilinogen 2.0 (<2.0) mg/dL Ur Leukocyte Esterase Large H (Negative) Urine RBC 38 H (0-5) /hpf Urine WBC >182 H (0-5) /hpf Urine WBC Clumps Many H (None) /hpf Ur Squamous Epith Cells 22 H (0-4) /hpf Urine Mucus Many H (None) /hpf Urine HCG, Qual Not Detected (Not Detectd) - Radiology Data Radiology results: report reviewed, image reviewed Disposition Clinical Impression: Urinary tract infection, Possible exposure to STD, Genital lesion, female Disposition: HOME SELF-CARE Instructions (If sedation given, give patient instructions): Urinary Tract Infection in Women (ED) Additional Instructions: Return to the emergency department with any new, worsening, or concerning symptoms. Take the doxycycline, Macrobid, and Valtrex as prescribed. Take the Pyridium up to 3 times daily to help with any burning with urination. Alternate with ibuprofen and Tylenol as needed for discomfort. Follow up with your primary care provider in 1-2 days. Prescriptions: Doxycycline Hyclate 100 mg PO BID 7 Days #14 tab Nitrofurantoin Monohyd/M-Cryst [Macrobid] 100 mg PO Q12HR 5 Days #10 cap Phenazopyridine [Pyridium] 200 mg PO TID #9 tablet valACYclovir HCL [Valacyclovir] 1,000 mg PO BID 10 Days #20 tab Is patient prescribed a controlled substance at d/c from ED?: No Referrals: Anamaria Micahel MD [Primary Care Provider] - 1-2 days Time of Disposition: 02:34
[2025-02-16 23:51] LABS: Basophils # (A) 0.03 10*3/uL (0.00-0.10); Basophils % (A) 0.6 %; HGB 13.6 g/dL (12.0-15.0); Lymphocytes # (A) 0.77 10*3/uL (0.90-5.00); Lymphocytes % (A) 14.3 %; MCH 30.4 pg (27.0-32.0); MCV 89.5 fL (80.0-97.0); Mean Platelet Volume 9.9 fL (9.5-12.2); Monocytes # (A) 0.33 10*3/uL (0.20-1.00); Monocytes % (A) 6.1 %; Neutrophils # (A) 4.24 10*3/uL (1.80-7.70); Neutrophils % (A) 78.8 %; Platelet Count 218 10*3/uL (140-440); RBC 4.47 10*6/uL (4.10-5.20); RDW 12.3 % (11.5-14.5); WBC 5.38 10*3/uL (4.50-10.00)
[2025-02-17] MEDS: cefTRIAXone IN SWFI 1,000 MG/10 ML SYRINGE IVP STA (00:27)
[2025-02-17] MEDS: DOXYCYCLINE 100 MG TABLET PO ONE (00:28)
[2025-02-17] MEDS: metroNIDAZOLE 500 MG TAB PO STA ×2 (00:28→01:21)
[2025-02-17 00:42] LABS: Appearance,Urine Turbid (Clear); Bilirubin,Urine Negative (Negative); Blood,Urine Small (Negative); Color,Urine Light Red; Glucose,Urine (UA) Negative (Negative); Ketones,Urine 1+ (Negative); Leukocyte Esterase,Urine Large (Negative); Mucus,Urine Many /hpf; Nitrite,Urine Negative (Negative); Protein,Urine 1+ (Negative); RBC,Urine 38 /hpf (0-5); Specific Gravity,Urine 1.024 (1.001-1.035); Squamous Epithelial Cell,Urine 22 /hpf (0-4); WBC,Urine >182 /hpf (0-5)
[2025-02-17 01:05] LABS: ALT 13 U/L (4-34); AST 22 U/L (14-36); African American GFR (CKD) >90 (>60 ml/min/1.73 sqM); Albumin 3.6 g/dL (3.5-5.0); Alkaline Phosphatase 39 U/L (38-126); Anion Gap 10 mmol/L; Blood Urea Nitrogen 12 mg/dL (7-17); Calcium 8.5 mg/dL (8.4-10.2); Carbon Dioxide 25 mmol/L (22-30); Chloride 99 mmol/L (98-107); Glucose 87 mg/dL (74-99); Non-African American GFR(CKD) >90 (>60 ml/min/1.73 sqM); Potassium 3.5 mmol/L (3.5-5.1); Sodium 134 mmol/L (137-145); Total Bilirubin 0.8 mg/dL (0.2-1.3); Total Protein 5.9 g/dL (6.3-8.2)
[2025-02-17] MEDS: valACYclovir HCL 1,000 MG TABLET PO ONE (01:36)
[2025-02-17] MEDS: FLUCONAZOLE 150 MG TAB PO STA (01:36)
[2025-02-17 02:06] VITALS: BP 110/57; PULSE 87; RESP 16; TEMP 98.1
--- NOTE | 2025-02-17 02:24 | US ---
EXAM: US Pelvis Transabdominal and Transvaginal CLINICAL HISTORY: ITS.REASON US Pelvic pain TECHNIQUE: Real-time transabdominal and transvaginal pelvic ultrasound with image documentation. Transvaginal imaging was used for better evaluation of the endometrium and adnexa. 76 images COMPARISON: No relevant prior studies available. FINDINGS: Uterus/cervix: Anteverted uterus contains T-shaped IUD, in satisfactory position. Uterus measures about 7.6 x 3.6 x 4.8 cm. Endometrial echo complex has normal echotexture and thickness measures about 3 mm. No myometrial mass. Right ovary: Right ovary measures about 4.1 x 1.8 x 1.6cm. Normal blood flow. Left ovary: 10 x 15 x 16 mm left ovarian follicle. Left ovary measures about 3.5 x 2.5 x 2.1 cm. Normal blood flow. Free fluid: No free fluid. IMPRESSION: No acute findings
[2025-02-17] MEDS: ACET/COD 300 MG/30 MG STARTER PACK 6 TAB BTL PO STA (02:40)
[2025-02-17] MEDS: ONDANSETRON 4 MG ODT STARTER PACK 2 TAB BTL PO STA (02:40)
== END 2025-02-17 02:43 | disposition home or self-care (01) ==
LOC: EC 22:50
DX: N39.0 Urinary tract infection, site not specified (principal); N90.89 Other specified noninflammatory disorders of vulva and perineum; F17.290 Nicotine dependence, other tobacco product, uncomplicated; Z91.040 Latex allergy status; Z88.8 Allergy status to other drugs, medicaments and biological substances
CPT/HCPCS: 83605; 85025; 99284; 96374; 96375 ×2; 96361; J2405; J1885; 36415; 76830; 76856; 80053; 81001; 81025; 86780; 87086; 87491; 87591; 93975